=== PATIENT | female | born 1935 | race Caucasian/White ===

== ENCOUNTER 2017-07-10 12:59 | Emergency (ER) | payer OTHER ==
[~2017-07-10] VITALS: Ht 149.9 cm; Wt 113.0 kg
[~2017-07-10 12:59] MED LIST: NAPR1TAB9 PO; POLY335019 PO
[2017-07-10 13:07] VITALS: TEMP 36.7; Ht 149.9 cm; Wt 113.0 kg
[2017-07-10] MEDS ORDERED: LEVO50TA PO (13:20)
[2017-07-10] MEDS ORDERED: ACETAMINOPHEN 500 MG TAB PO STA (13:47)
[2017-07-10] MEDS ORDERED: TRAMADOL HCL 50 MG TAB PO STA (13:47)
[2017-07-10] MEDS ORDERED: IBUPROFEN 200 MG TAB PO STA (13:47)
--- NOTE | 2017-07-10 14:30 | EMERGENCY ROOM VISIT NOTE ---
History Report prepared by Nakita: Kalee Hartley Under the Supervision of: Dr. Miguel Guallpa M.D. First contact with patient: 13:26 Chief Complaint: HIP PAIN Stated Complaint: PAIN IN R LEG AND HIP History of Present Illness The patient is an 82 year old white female with a past medical history of HTN who presents to the ED with a cc of right leg pain worsening since last night. Positive dry cough. Negative fevers, chills, urinary symptoms, diarrhea, recent weight loss, IV drug use. The patient states that she has had pain in her right leg for some time, but last night it became much worse. She is now having pain in her right hip, which she states is new. Her pain is located in her right madrigal , right buttock, and right hip. She describes her pain as burning and sharp and rates it as a 4/10 in severity. She has not been taking anything for her pain. Lying still helps to alleviate her pain. The patient reports a bug bite to her right buttocks about two weeks ago and states that she still has a eileen where the bite occurred. She has been putting Neosporin on it and denies any pain around the area. The patient went to see her PCP this morning for her symptoms and was prescribed prednisone. She has not started taking this medication yet. She was sent to the ED for further evaluation of her symptoms. She states that she has been eating and drinking normally. Source of History: patient Onset: last night Position: leg (right) Symptom Intensity: 4/10 Quality: burning, sharp Timing: worsening Modifying Factors (Relieving): other (lying still) Associated Symptoms: + cough, No fevers, No chills, No diarrhea, No urinary symptoms Note: Pt has pain in right madrigal, right hip, and right buttock. Pt had recent bug bite to right buttock. Review of Systems See HPI for pertinent positives and negatives. A total of ten systems were reviewed and were otherwise negative. Past Medical & Surgical Medical Problems: (1) Bilateral tubal ligation (2) Hysterectomy Family History Non-pertinent due to advanced age. Social History Smoking Status: Never Smoker Smokeless Tobacco Use: No Alcohol Use: none Drug Use: none Marital Status: Housing Status: lives with family Occupation Status: retired Current/Historical Medications Scheduled Levothyroxine Sodium (Synthroid), 50 MCG PO DAILY Allergies Coded Allergies: Chlordiazepoxide (Verified Allergy, Intermediate, RASH, 07/28/16) Levofloxacin (Verified Adverse Reaction, Mild, GI UPSET, 07/28/16) Physical Exam Vital Signs Date Time Temp Pulse Resp B/P (MAP) Pulse Ox O2 Delivery O2 Flow Rate FiO2 07/10/17 16:49 84 20 141/84 97 07/10/17 13:07 36.7 98 20 160/93 95 Room Air Physical Exam GENERAL: Awake, alert, well-appearing, NAD HENT: Normocephalic, atraumatic. Edentulous. EYES: Normal conjunctiva. Sclera non-icteric. NECK: Supple. No nuchal rigidity. FROM. RESPIRATORY: CTAB, no rhonchi, wheezing, crackles CARDIAC: RRR, no MRG ABDOMEN: Soft, NTND, BS+ MSK: No chest wall TTP, no LE edema. Mild reproducible SI joint tenderness to palpation. good flexion/extension at hip, knee, ankle. DP/SP/tib nerves intact to sensory & motor NEURO: GCS 15, CN 2-12 intact, moves all 4s on command SKIN: No rash or jaundice noted. She has a small area of erythema on the posterior right buttock approximately 1 cm across, no fluctuance or tenderness, not consistent with a target. Medical Decision & Procedures ER Provider Diagnostic Interpretation: Radiology results as stated below per my review and radiologist interpretation: LUMBAR SPINE 2 OR 3 VIEWS HISTORY: 82 years-old Female acute right sided SI joint pain COMPARISON: Lumbar spine radiographs 07/28/2016 TECHNIQUE: 3 views of the lumbar spine. FINDINGS: There is mild convex right curvature of the lumbar spine. 5 nonrib-bearing lumbar type vertebral segments are present with hypoplastic ribs at T12. Vascular calcifications are noted. No acute compression deformity is identified. There is unchanged 6 mm anterolisthesis L4 on L5 with intervertebral disc space narrowing and facet arthropathy seen most prominently at the L3-L4 and L5-S1 levels. Hemangioma of L2 again noted. Degenerative changes involve the bilateral sacroiliac joints. No evidence of sacral insufficiency fracture, however radiographs can be insensitive especially in the setting of background osteopenia. IMPRESSION: 1. No acute bony abnormality. 2. Mild dextroscoliosis of the lumbar spine with unchanged grade 1 anterolisthesis L4 on L5, likely degenerative in nature. 3. Intervertebral disc space narrowing and facet arthropathy is most pronounced at the L3-L4 and L5-S1 levels. The above report was generated using voice recognition software. It may contain grammatical, syntax or spelling errors. Electronically signed by: Joaquin Tee M.D. 07/10/2017 2:36 PM Dictated Date/Time: 07/10/2017 2:33 PM RIGHT PELVIS/UNILATERAL HIP 2-3VIEWS CLINICAL HISTORY: FALL Right COMPARISON STUDY: None. FINDINGS: No fracture or dislocation within the pelvis or hips. Mild osteoarthritis within the bilateral hips and sacroiliac joints. The sacrum appears intact. Pelvic calcifications are nonspecific but favor phleboliths. There is evidence for moderate degenerative changes at the symphysis pubis.. IMPRESSION: No fracture or dislocation within the pelvis or hips. Electronically signed by: Oj Bang M.D. 07/10/2017 2:35 PM Dictated Date/Time: 07/10/2017 2:33 PM Laboratory Results 07/10/17 14:50 Red Blood Count 4.72, Mean Corpuscular Volume 87.7, Mean Corpuscular Hemoglobin 29.4, Mean Corpuscular Hemoglobin Concent 33.6, Mean Platelet Volume 10.4, Neutrophils (%) (Auto) 60.3, Lymphocytes (%) (Auto) 30.5, Monocytes (%) (Auto) 7.1, Eosinophils (%) (Auto) 1.6, Basophils (%) (Auto) 0.3, Neutrophils # (Auto) 3.89, Lymphocytes # (Auto) 1.97, Monocytes # (Auto) 0.46, Eosinophils # (Auto) 0.10, Basophils # (Auto) 0.02 07/10/17 14:50 Test 07/10/17 14:50 White Blood Count 6.45 K/uL (4.8-10.8) Red Blood Count 4.72 M/uL (4.2-5.4) Hemoglobin 13.9 g/dL (12.0-16.0) Hematocrit 41.4 % (37-47) Mean Corpuscular Volume 87.7 fL (80-100) Mean Corpuscular Hemoglobin 29.4 pg (25-34) Mean Corpuscular Hemoglobin Concent 33.6 g/dl (32-36) Platelet Count 295 K/uL (130-400) Mean Platelet Volume 10.4 fL (7.4-10.4) Neutrophils (%) (Auto) 60.3 % Lymphocytes (%) (Auto) 30.5 % Monocytes (%) (Auto) 7.1 % Eosinophils (%) (Auto) 1.6 % Basophils (%) (Auto) 0.3 % Neutrophils # (Auto) 3.89 K/uL (1.4-6.5) Lymphocytes # (Auto) 1.97 K/uL (1.2-3.4) Monocytes # (Auto) 0.46 K/uL (0.11-0.59) Eosinophils # (Auto) 0.10 K/uL (0-0.5) Basophils # (Auto) 0.02 K/uL (0-0.2) RDW Standard Deviation 45.6 fL (36.4-46.3) RDW Coefficient of Variation 14.1 % (11.5-14.5) Immature Granulocyte % (Auto) 0.2 % Immature Granulocyte # (Auto) 0.01 K/uL (0.00-0.02) Anion Gap 5.0 mmol/L (3-11) Est Creatinine Clear Calc Drug Dose 58.3 ml/min Estimated GFR () 74.5 Estimated GFR (Non- 64.3 BUN/Creatinine Ratio 13.3 (10-20) Calcium Level 9.3 mg/dl (8.5-10.1) Lyme Disease IgG Antibody NEG (NEG) Laboratory results reviewed by me. Medications Administered Medications (Trade) Dose Ordered Sig/Dayron Route Start Time Stop Time Status Last Admin Dose Admin Ibuprofen (Advil Tab) 400 mg NOW STAT PO 07/10/17 13:47 07/10/17 13:51 DC 07/10/17 14:12 400 MG Acetaminophen (Tylenol Tab) 1,000 mg NOW STAT PO 07/10/17 13:47 07/10/17 13:51 DC 07/10/17 14:11 1,000 MG Tramadol HCl (Ultram Tab) 25 mg NOW STAT PO 07/10/17 13:47 07/10/17 13:51 DC 07/10/17 14:11 25 MG ED Course 1326: The patient was evaluated in room B6. A complete history and physical exam was performed. 1347: Ultram 25 mg PO, Tylenol tab 1000 mg PO, Advil 400 mg PO 1451: I updated the patient on her results. 1629: I reassessed the patient at this time. She is feeling better and resting comfortably. I discussed the results and treatment plan with the patient. I answered all pertaining questions that she had. She expressed understanding and verbalized agreement. The patient will be discharged home. Medical Decision Differential diagnoses includes sacroiliitis, osteoarthritis, degenerative joint disease. The patient is an 82 year old white female with a past medical history of HTN who presents to the ED with a cc of right leg pain worsening since last night. Patient laboratory addition to x-rays. Patient did have degenerative and arthritic changes seen on her films without any dislocation or fracture. Patient was able to handle it without any difficulty. Patient's labs were fairly unremarkable. Patient was informed that she was discharged for Lyme's disease but that the results were not back. Patient was told that if confirmed we would have a confirmation test that would likely take 24-48 hours to complete at which point if confirm the patient would be called with resultant prescription to be ordered. Patient agree with the plan of care. Patient was given strict follow-up discharge, return precautions. Patient agreed with plan of care and was discharged home. Medication Reconcilliation Current Medication List: was personally reviewed by me Blood Pressure Screening Patient's blood pressure: Elevated blood pressure Blood pressure disposition: Referred to PCP Impression Primary Impression: Sacroiliitis Additional Impression: Osteoarthritis Scribe Attestation The scribe's documentation has been prepared under my direction and personally reviewed by me in its entirety. I confirm that the note above accurately reflects all work, treatment, procedures, and medical decision making performed by me. Departure Information Dispostion Home / Self-Care Referrals No Doctor, Assigned (PCP) Forms HOME CARE DOCUMENTATION FORM, IMPORTANT VISIT INFORMATION, WORK / SCHOOL INSTRUCTIONS Patient Instructions ED Sacroiliitis, My [facility] Additional Instructions Please return to the emergency department if you have worsening or recurrent symptoms not amenable to at-home treatment. Please call for a follow-up appointment with her primary care physician. Please take your medications as prescribed. If you have other concerns and/or complaints please feel free to also call your primary care physician's office or return the ED for further evaluation, management, and treatment. Problem Qualifiers Additional Impression: Osteoarthritis Osteoarthritis location: hip Osteoarthritis type: unspecified Laterality: right Qualified Codes: M16.11 - Unilateral primary osteoarthritis, right hip
--- NOTE | 2017-07-10 14:37 | DIAGNOSTIC IMAGING REPORT ---
RIGHT PELVIS/UNILATERAL HIP 2-3VIEWS CLINICAL HISTORY: FALL Right COMPARISON STUDY: None. FINDINGS: No fracture or dislocation within the pelvis or hips. Mild osteoarthritis within the bilateral hips and sacroiliac joints. The sacrum appears intact. Pelvic calcifications are nonspecific but favor phleboliths. There is evidence for moderate degenerative changes at the symphysis pubis.. IMPRESSION: No fracture or dislocation within the pelvis or hips. Electronically signed by: Oj Bang M.D. 07/10/2017 2:35 PM Dictated Date/Time: 07/10/2017 2:33 PM
--- NOTE | 2017-07-10 14:38 | DIAGNOSTIC IMAGING REPORT ---
LUMBAR SPINE 2 OR 3 VIEWS HISTORY: 82 years-old Female acute right sided SI joint pain COMPARISON: Lumbar spine radiographs 07/28/2016 TECHNIQUE: 3 views of the lumbar spine. FINDINGS: There is mild convex right curvature of the lumbar spine. 5 nonrib-bearing lumbar type vertebral segments are present with hypoplastic ribs at T12. Vascular calcifications are noted. No acute compression deformity is identified. There is unchanged 6 mm anterolisthesis L4 on L5 with intervertebral disc space narrowing and facet arthropathy seen most prominently at the L3-L4 and L5-S1 levels. Hemangioma of L2 again noted. Degenerative changes involve the bilateral sacroiliac joints. No evidence of sacral insufficiency fracture, however radiographs can be insensitive especially in the setting of background osteopenia. IMPRESSION: 1. No acute bony abnormality. 2. Mild dextroscoliosis of the lumbar spine with unchanged grade 1 anterolisthesis L4 on L5, likely degenerative in nature. 3. Intervertebral disc space narrowing and facet arthropathy is most pronounced at the L3-L4 and L5-S1 levels. The above report was generated using voice recognition software. It may contain grammatical, syntax or spelling errors. Electronically signed by: Joaquin Tee M.D. 07/10/2017 2:36 PM Dictated Date/Time: 07/10/2017 2:33 PM
[2017-07-10 15:08] LABS: BASO % 0.3 %; BASO ABS # 0.02 K/uL (0-0.2); COMPLETE YES; EOS % 1.6 %; HEMATOCRIT 41.4 % (37-47); IG% 0.2 %; LYMPH % 30.5 %; LYMPH ABS # 1.97 K/uL (1.2-3.4); MEAN CELL VOLUME 87.7 fL (80-100); MEAN CORPUSCULAR HEMOGLOBIN 29.4 pg (25-34); MEAN CORPUSCULAR HGB CONC 33.6 g/dl (32-36); MEAN PLATELET VOLUME 10.4 fL (7.4-10.4); MONO % 7.1 %; NEUT % 60.3 %; PLATELET COUNT 295 K/uL (130-400); RED BLOOD COUNT 4.72 M/uL (4.2-5.4); WHITE BLOOD COUNT 6.45 K/uL (4.8-10.8)
[2017-07-10 15:24] LABS: BUN/CREATININE RATIO 13.3 (10-20); CALCIUM 9.3 mg/dl (8.5-10.1); CREATININE 0.85 mg/dl (0.60-1.20)
[2017-07-10 16:49] VITALS: BP 141/84; PULSE 84; O2SAT 97
[2017-07-10 17:25] LABS: LYME DISEASE AB IGG NEG (NEG)
[2017-07-10 17:27] LABS: LYME DISEASE AB IGM EQUIVOCAL (NEG)
[2017-07-16 15:17] LABS: 18KDIGG BAND NONREACTIVE (NONREACTIVE); 23KDIGG BAND NONREACTIVE (NONREACTIVE); 23KDIGM BAND REACTIVE (NONREACTIVE); 28KDIGG BAND NONREACTIVE (NONREACTIVE); 30KDIGG BAND NONREACTIVE (NONREACTIVE); 39KDIGG BAND REACTIVE (NONREACTIVE); 39KDIGM BAND NONREACTIVE (NONREACTIVE); 41KDIGG BAND REACTIVE (NONREACTIVE); 41KDIGM BAND REACTIVE (NONREACTIVE); 45KDIGG BAND REACTIVE (NONREACTIVE); 58KDIGG BAND NONREACTIVE (NONREACTIVE); 66KDIGG BAND NONREACTIVE (NONREACTIVE); 93KDIGG BAND NONREACTIVE (NONREACTIVE)
== END 2017-07-10 16:50 | disposition home or self-care (01) ==
LOC: C.EDB 13:00
DX: M46.1 Sacroiliitis, not elsewhere classified (principal); M16.11 Unilateral primary osteoarthritis, right hip; I10 Essential (primary) hypertension; Z90.710 Acquired absence of both cervix and uterus; Z98.51 Tubal ligation status; Z79.899 Other long term (current) drug therapy

== ENCOUNTER 2021-03-31 14:01 | Observation (INO) ==
--- NOTE | 2021-03-31 14:40 | Emergency Department Note ---
Impression & Plan Left-sided chest pain ED Provider Note INFORMANT: Patient ED PROVIDER(S): Dontrell Sanchez MD CHIEF COMPLAINT: Chest pain PLAN: Disposition: Admitted Condition: Good Outpatient prescription management: none Referral: None MEDICAL DECISION MAKING: Patient presented complaining of chest pain. It was resolved with time I saw her. Her prehospital ECG did not show any ST elevation or depression. She was given aspirin. She had an unremarkable chest x-ray. Her ECG here did not show any ischemia. Her CBC and chemistry panel was unremarkable. The patient was moderately hypertensive. It did trend downward without direct intervention. Because of her age and hypertension along with the complaints she would require further management in the hospital. The patient was in agreement with this. [facility] The patient will be admitted for further management. Triage Nursing notes reviewed and agree them. Vital Signs: reviewed and remarkable for hypertension Differential diagnosis: Cardiac ischemia, aortic dissection, pulmonary embolism, pneumothorax, pneumonia, pericarditis, myocarditis, esophageal rupture, GERD, cholecystitis, pancreatitis, musculoskeletal, as well as other pathologies. Diagnostics interpreted by me: ECG: Rate: 69 Rhythm:Normal sinus [place]:Normal QRS:Normal ST segements:No elevation or depression Other:No PACs or PVCs Cardiac Monitoring: Cardiac monitoring ordered by me: The patient was placed on continuous cardiac monitoring and observed. It revealed a normal sinus rhythm at 77 beats per minute without ectopy or evidence of dysrhythmia. Imaging studies: Imaging studies: Chest x-ray. Findings: A chest x-ray was performed and revealed no pneumothorax, effusion, infiltrate, pulmonary edema, free air under the diaphragm, or wide mediastinum. Impression: No acute disease. HPI: The patient is a 86 year old female who presents to the Emergency Room with complaints of left-sided chest pain. This started this morning and is currently resolved. The patient also notes the following associated symptoms, none. The patient has taken no medication for relieving factors. Current pain is rated as 0/10. Patient states the pain was located left-sided chest. It did not radiate. She did feel short of breath. She was given 324 mg of aspirin by EMS. Prehospital ECG did not reveal any ST elevation or depression. Patient denies any medication history. She notes only problems with arthritis in her right elb ow and right knee pt denies LOC, headache, fevers, chills, diaphoresis, visual changes, neck pain, nausea, vomiting, abdominal pain, back pain, melena, hematochezia, urinary symptoms, numbness, weakness, lymphadenopathy, rash, or other complaints. ROS: See above HPI for pertinent positives & negatives. A total of 10 systems reviewed and were otherwise negative. PAST MEDICAL HISTORY:See Below , arthritis PAST SURGICAL HISTORY:See Below, FAMILY HISTORY:See Below SOCIAL HISTORY:See Below, retired HOME MEDICATIONS:See Below ALLERGIES:See Below VITALS:See Below PHYSICAL EXAMINATION: GENERAL: Awake, alert, mildly dyspneic-appearing, in no distress HENT: Normocephalic, atraumatic. Oropharynx unremarkable. EYES: Normal conjunctiva. Sclera non-icteric. NECK: Inspection normal. Non-tender. Supple. No nuchal rigidity. FROM. No masses. RESPIRATORY: Clear to auscultation. No wheezes. No rales. Normal respiratory effort. CARDIAC: Normal rate. Normal rhythm. No murmurs. No rubs. Extremities warm and well perfused. Pulses equal. No JVD. GI: Soft, non-distended. No tenderness to palpation. No rebound or guarding. No masses. RECTAL: Deferred. MUSCULOSKELETAL: Atraumatic. Chest examination reveals no tenderness. The back is symmetrical on inspection without obvious abnormality. There is no CVA tenderness to palpation. No joint edema. LOWER EXTREMITIES: Calves are equal size bilaterally and non-tender. No edema. No discoloration. NEURO: Normal sensorium. No sensory or motor deficits noted. SKIN: No rash or jaundice noted. Dontrell Sanchez MD Past Med/Surg History Medical History HTN (hypertension) Hypothyroidism Osteoarthritis Surgical History History of tubal ligation S/P NICOLE (total abdominal hysterectomy) S/P tonsillectomy and adenoidectomy Family History (Updated 03/31/21 @ 17:58 by LEIA Pinto) Sister Breast cancer Mother Stroke Social History (Updated 03/31/21 @ 18:02 by LEIA Pinto) Smoking Status: Never smoker Hx Alcohol Use: No Preferred Language: Ukrainian Feels Safe at Home: Yes Allergies Allergies Allergy/AdvReac Type Severity Reaction Status Date / Time chlordiazepoxide Allergy Intermediate RASH Verified 03/31/21 16:47 levofloxacin AdvReac Mild GI UPSET Verified 03/31/21 16:47 Home Meds Home Medications Medication Instructions Recorded Confirmed aspirin-caffeine [Back and Body 2 tab PO DIRECTED PRN 03/31/21 03/31/21 Pain Reliever] cholecalciferol (vitamin D3) 50,000 unit PO WK 03/31/21 03/31/21 levothyroxine 25 mcg PO QAM 03/31/21 03/31/21 Results & Data (ED) Vital Signs Vital Signs - 24 hr 03/31/21 14:10 03/31/21 14:15 03/31/21 14:17 Temperature 36.5 C Temperature Source Oral Pulse Rate 70 76 68 Pulse Rate [Apical] Pulse Rate from SpO2 Sensor 69 69 Pulse Rhythm Regular Pulse Strength Normal Respiratory Rate 18 14 15 Respiratory Effort / Characteristics Non-Labored Respiratory Depth Normal Respiratory Pattern Regular Blood Pressure 215/94 H 215/94 H Blood Pressure [Right Radial Artery] Blood Pressure Mean 134 134 Blood Pressure Mean [Right Radial Artery] Blood Pressure Position Lying Pulse Oximetry 99 93 99 Oxygen Delivery Method Room Air Sepsis Recent Fever Within 48 Hours No Sepsis New/Unexplained Change in Mental Status N/A Sepsis Action Taken by Nursing No Action Required 03/31/21 14:32 03/31/21 14:33 03/31/21 14:34 Temperature Temperature Source Pulse Rate 81 78 80 Pulse Rate [Apical] Pulse Rate from SpO2 Sensor 79 79 Pulse Rhythm Pulse Strength Respiratory Rate 24 20 26 H Respiratory Effort / Characteristics Respiratory Depth Respiratory Pattern Blood Pressure 196/98 H Blood Pressure [Right Radial Artery] Blood Pressure Mean 130 Blood Pressure Mean [Right Radial Artery] Blood Pressure Position Pulse Oximetry 98 98 Oxygen Delivery Method Sepsis Recent Fever Within 48 Hours Sepsis New/Unexplained Change in Mental Status Sepsis Action Taken by Nursing 03/31/21 14:35 03/31/21 15:00 03/31/21 15:01 Temperature Temperature Source Pulse Rate 77 74 78 Pulse Rate [Apical] 72 Pulse Rate from SpO2 Sensor 77 Pulse Rhythm Pulse Strength Respiratory Rate 24 21 12 Respiratory Effort / Characteristics Non-Labored Spontaneous Respiratory Depth Normal Respiratory Pattern Regular Blood Pressure 173/103 H Blood Pressure [Right Radial Artery] 196/98 H Blood Pressure Mean 126 Blood Pressure Mean [Right Radial Artery] 130 Blood Pressure Position Pulse Oximetry 93 99 Oxygen Delivery Method Room Air Sepsis Recent Fever Within 48 Hours Sepsis New/Unexplained Change in Mental Status Sepsis Action Taken by Nursing 03/31/21 15:30 03/31/21 15:31 03/31/21 16:00 Temperature Temperature Source Pulse Rate 78 78 77 Pulse Rate [Apical] Pulse Rate from SpO2 Sensor 78 78 Pulse Rhythm Pulse Strength Respiratory Rate 18 19 20 Respiratory Effort / Characteristics Respiratory Depth Respiratory Pattern Blood Pressure 182/84 H Blood Pressure [Right Radial Artery] Blood Pressure Mean 116 Blood Pressure Mean [Right Radial Artery] Blood Pressure Position Pulse Oximetry 98 98 Oxygen Delivery Method Sepsis Recent Fever Within 48 Hours Sepsis New/Unexplained Change in Mental Status Sepsis Action Taken by Nursing 03/31/21 16:30 03/31/21 17:00 03/31/21 17:01 Temperature Temperature Source Pulse Rate 77 72 72 Pulse Rate [Apical] Pulse Rate from SpO2 Sensor 78 72 72 Pulse Rhythm Pulse Strength Respiratory Rate 20 13 16 Respiratory Effort / Characteristics Respiratory Depth Respiratory Pattern Blood Pressure 174/100 H 178/135 H Blood Pressure [Right Radial Artery] Blood Pressure Mean 124 149 Blood Pressure Mean [Right Radial Artery] Blood Pressure Position Pulse Oximetry 98 97 97 Oxygen Delivery Method Sepsis Recent Fever Within 48 Hours Sepsis New/Unexplained Change in Mental Status Sepsis Action Taken by Nursing 03/31/21 17:30 Temperature Temperature Source Pulse Rate 68 Pulse Rate [Apical] Pulse Rate from SpO2 Sensor 76 Pulse Rhythm Pulse Strength Respiratory Rate 20 Respiratory Effort / Characteristics Respiratory Depth Respiratory Pattern Blood Pressure 187/95 H Blood Pressure [Right Radial Artery] Blood Pressure Mean 125 Blood Pressure Mean [Right Radial Artery] Blood Pressure Position Pulse Oximetry 95 Oxygen Delivery Method Sepsis Recent Fever Within 48 Hours Sepsis New/Unexplained Change in Mental Status Sepsis Action Taken by Nursing Laboratory Data Result diagrams: 03/31/21 16:02 03/31/21 16:02 Lab Results 03/31/21 03/31/21 03/31/21 Range/Units 15:18 15:18 16:02 WBC 7.91 (4.8-10.8) K/uL RBC 4.65 (4.2-5.4) M/uL Hgb 13.4 (12.0-16.0) g/dL Hct 41.1 (37-47) % MCV 88.4 (80-100) fL MCH 28.8 (25-34) pg MCHC 32.6 (32-36) g/dL RDW Std Deviation 46.0 (36.4-46.3) fL RDW Coeff of Kiley 14.2 (11.5-14.5) % Plt Count 305 (130-400) K/uL MPV 9.8 (7.4-10.4) fL Immature Gran % (Auto) 0.3 % Neut % (Auto) 65.6 % Lymph % (Auto) 24.3 % Luna % (Auto) 8.2 % Eos % (Auto) 1.5 % Baso % (Auto) 0.1 % Neut # (Auto) 5.19 (1.4-6.5) K/uL Lymph # (Auto) 1.92 (1.2-3.4) K/uL Luna # (Auto) 0.65 H (0.11-0.59) K/uL Eos # (Auto) 0.12 (0-0.5) K/uL Baso # (Auto) 0.01 (0-0.2) K/uL Immature Gran # (Auto) 0.02 (0.00-0.02) K/uL Sodium (136-145) mmol/L Potassium (3.5-5.1) mmol/L Chloride (98-107) mmol/L Carbon Dioxide (21-32) mmol/L Anion Gap (3-11) BUN (7-18) mg/dl Creatinine (0.6-1.2) mg/dl Est Cr Clr Drug Dosing ml/min Est GFR ( Amer) Est GFR (Non-Af Amer) BUN/Creatinine Ratio (10-20) Glucose (70-99) mg/dl Calcium (8.5-10.1) mg/dl Total Bilirubin (0.2-1) mg/dl AST (15-37) U/L ALT (12-78) U/L Alkaline Phosphatase (45-117) U/L Troponin I (0-0.045) ng/ml Total Protein (6.4-8.2) gm/dl Albumin (3.4-5.0) gm/dl Globulin (2.5-4.0) gm/dl Albumin/Globulin Ratio (0.9-2) Lipase (73-393) U/L COVID-19 Eval Order [facility] at [facility] SARS-CoV-2 (PCR) NEGATIVE (Negative) Influenza Type A (PCR) Negative (Neg) Influenza Type B (PCR) Negative (Neg) RSV (RT-PCR) Negative (Neg) 03/31/21 Range/Units 16:02 WBC (4.8-10.8) K/uL RBC (4.2-5.4) M/uL Hgb (12.0-16.0) g/dL Hct (37-47) % MCV (80-100) fL MCH (25-34) pg MCHC (32-36) g/dL RDW Std Deviation (36.4-46.3) fL RDW Coeff of Kiley (11.5-14.5) % Plt Count (130-400) K/uL MPV (7.4-10.4) fL Immature Gran % (Auto) % Neut % (Auto) % Lymph % (Auto) % Luna % (Auto) % Eos % (Auto) % Baso % (Auto) % Neut # (Auto) (1.4-6.5) K/uL Lymph # (Auto) (1.2-3.4) K/uL Luna # (Auto) (0.11-0.59) K/uL Eos # (Auto) (0-0.5) K/uL Baso # (Auto) (0-0.2) K/uL Immature Gran # (Auto) (0.00-0.02) K/uL Sodium 142 (136-145) mmol/L Potassium 4.1 (3.5-5.1) mmol/L Chloride 113 H (98-107) mmol/L Carbon Dioxide 27 (21-32) mmol/L Anion Gap 2.0 L (3-11) BUN 14 (7-18) mg/dl Creatinine 0.79 (0.6-1.2) mg/dl Est Cr Clr Drug Dosing 59.9 ml/min Est GFR ( Amer) 79.1 Est GFR (Non-Af Amer) 68.3 BUN/Creatinine Ratio 18.3 (10-20) Glucose 122 H (70-99) mg/dl Calcium 9.0 (8.5-10.1) mg/dl Total Bilirubin 0.4 (0.2-1) mg/dl AST 11 L (15-37) U/L ALT 19 (12-78) U/L Alkaline Phosphatase 111 (45-117) U/L Troponin I < 0.015 (0-0.045) ng/ml Total Protein 7.3 (6.4-8.2) gm/dl Albumin 3.3 L (3.4-5.0) gm/dl Globulin 4.0 (2.5-4.0) gm/dl Albumin/Globulin Ratio 0.8 L (0.9-2) Lipase 86 (73-393) U/L COVID-19 Eval Order SARS-CoV-2 (PCR) (Negative) Influenza Type A (PCR) (Neg) Influenza Type B (PCR) (Neg) RSV (RT-PCR) (Neg) Imaging Data Radiologist's Impression: Chest X-Ray 03/31/21 14:17 XR chest 1V portable CLINICAL HISTORY: Atypical chest pain COMPARISON STUDY: 08/19/2013 FINDINGS: The cardiac and mediastinal contours remain stable. There is no focal pulmonary consolidation. There is no failure. There are no pleural effusions.[ IMPRESSION: No active disease in the chest. ACT 112: Negative or not required by law. Electronically signed by: Valentino Rush M.D. 03/31/2021 3:15 PM Discharge Plan Visit Data Chief Complaint: Chest Pain ED Provider: Dontrell Sanchez Discharge Problem: Left-sided chest pain Patient Disposition: Admitted As Inpatient Forms Stand Alone [facility]: [facility] Prescriptions Prescriptions: No Action levothyroxine 25 mcg tablet 25 mcg PO QAM RF: 0 cholecalciferol (vitamin D3) 1,250 mcg (50,000 unit) capsule 50,000 unit PO WK RF: 0 Back and Body Pain Reliever 500-32.5 mg Tablet 2 tab PO DIRECTED PRN (Reason: Pain) RF: 0 Referrals Referrals: Leslie Cabezas DO [Primary Care Provider] -
--- NOTE | 2021-03-31 15:16 | XRay Report ---
XR chest 1V portable CLINICAL HISTORY: Atypical chest pain COMPARISON STUDY: 08/19/2013 FINDINGS: The cardiac and mediastinal contours remain stable. There is no focal pulmonary consolidati on. There is no failure. There are no pleural effusions.[ IMPRESSION: No active disease in the chest. ACT 112: Negative or not required by law. Electronically signed by: Valentino Rush M.D. 03/31/2021 3:15 PM
--- NOTE | 2021-03-31 16:08 | Electrocardiogram Report ---
Test Reason : Blood Pressure : / mmHG Vent. Rate : 069 BPM Atrial Rate : 069 BPM P-R Int : 168 ms QRS Dur : 082 ms QT Int : 404 ms P-R-T Axes : 061 -04 016 degrees QTc Int : 432 ms Normal sinus rhythm Low voltage QRS Borderline ECG When compared with ECG of 20-AUG-2013 07:39, No significant change was found Confirmed by Awais Lema ([id number]) on 03/31/2021 4:07:36 PM Referred By: REFERRED SELF Confirmed By:Awais Lema
[2021-03-31 16:09] LABS: Basophils # (auto) 0.01 K/uL (0-0.2); Basophils % (auto) 0.1 %; Eosinophils # (auto) 0.12 K/uL (0-0.5); Eosinophils % (auto) 1.5 %; Hematocrit (blood only) 41.1 % (37-47); Hemoglobin 13.4 g/dL (12.0-16.0); Immature Granulocytes # (auto) 0.02 K/uL (0.00-0.02); Immature Granulocytes % (auto) 0.3 %; Lymphocytes # (auto) 1.92 K/uL (1.2-3.4); Lymphocytes % (auto) 24.3 %; Mean Corpuscular Hemoglobin 28.8 pg (25-34); Mean Corpuscular Hgb Conc 32.6 g/dL (32-36); Mean Corpuscular Volume 88.4 fL (80-100); Mean Platelet Volume 9.8 fL (7.4-10.4); Monocytes # (auto) 0.65 K/uL (0.11-0.59); Monocytes % (auto) 8.2 %; Neutrophils # (auto) 5.19 K/uL (1.4-6.5); Neutrophils % (auto) 65.6 %; Platelet Count 305 K/uL (130-400); RDW Coefficient of Variation 14.2 % (11.5-14.5); Red Blood Count 4.65 M/uL (4.2-5.4); White Blood Count 7.91 K/uL (4.8-10.8)
[2021-03-31 16:27] LABS: Alanine Aminotransferase 19 U/L (12-78); Albumin Level 3.3 gm/dl (3.4-5.0); Aspartate Aminotransferase 11 U/L (15-37); BUN Creatinine Ratio 18.3 (10-20); Blood Urea Nitrogen 14 mg/dl (7-18); Carbon Dioxide 27 mmol/L (21-32); Chloride 113 mmol/L (98-107); Creatinine Clr Calc Pharmacy 59.9 ml/min; Est GFR (African American) 79.1; Est GFR (Non-African American) 68.3; Glucose 122 mg/dl (70-99); Lipase 86 U/L (73-393); Potassium 4.1 mmol/L (3.5-5.1); Sodium 142 mmol/L (136-145)
[2021-03-31 16:32] LABS: Albumin Globulin Ratio 0.8 (0.9-2); Alkaline Phosphatase 111 U/L (45-117); Bilirubin,Total 0.4 mg/dl (0.2-1); Total Protein 7.3 gm/dl (6.4-8.2); Troponin I < 0.015 ng/ml (0-0.045)
[2021-03-31 16:37] LABS: Influenza A virus by PCR Negative (Neg); Influenza B virus by PCR Negative (Neg); RSV by PCR Negative (Neg); SARS CoV2 RNA(COVID-19) InHosp NEGATIVE (Negative)
--- NOTE | 2021-03-31 17:27 | History & Physical Report ---
Date of Service March 31, 2021 Assessment & Plan (1) Left-sided chest pain: (2) Hypertensive urgency: -Admit to telemetry -Patient presenting from home with reports of left-sided chest pain -In the ED, found to be significantly hypertensive with BP 215/94 -Has been diagnosed with hypertension in the past however patient declined antihypertensive medication -Currently chest pain-free, initial troponin negative, EKG without acute ST changes -BP mildly improving without intervention -Chest pain likely secondary to hypertensive urgency however will rule out ACS with serial troponins and resting echo -Start amlodipine 5 mg daily, as needed hydralazine -Cardiology consult, input appreciated (3) Hypothyroidism: -Continue levothyroxine (4) DVT prophylaxis: -SQ Lovenox History of Present Illness Chief Complaint: Chest Pain Primary Care Provider: Leslie Cabezas DO 86 year old female with PMH HTN, hypothyroidism, osteoarthritis, and other problems listed below who presents to the ED with reports of chest pain. Patient reports that last evening she was at home and heard a loud bang near her TV. She found that a picture had fallen and unplugged the TV. Patient reports she had to move a heavy stand and stretch to plug the TV back in. Patient reports she has arthritis and had some of her usual aches and pains last evening and took a "Back and Body Pain Reliever" pill. Patient reports she was feeling in her usual state of health this morning when she developed a pain over left breast into the left axilla while walking to the bathroom. Pain was persistent, sharp, stabbing. Patient reports she pressed her medical alert button and EMS arrived and brought her to the ED for further evaluation. Patient reports that once EMS arrived, the pain subsided. She reports she has chronic exertional shortness of breath which is unchanged from baseline. Denies associated lightheadedness, dizziness, diaphoresis, syncopal events. No headache or blurred vision. No other recent illnesses, fevers, chills. Denies abdominal pain, nausea, vomitin g, diarrhea. No urinary symptoms. In the ED, patient was found to be significantly hypertensive BP 215/94. Initial troponin is negative and EKG does not show any acute ST changes. Labs are unremarkable. Patient received a full dose aspirin for EMS. Allergies Allergy/AdvReac Type Severity Reaction Status Date / Time chlordiazepoxide Allergy Intermediate RASH Verified 03/31/21 16:47 levofloxacin AdvReac Mild GI UPSET Verified 03/31/21 16:47 Home Medications Medication Instructions Recorded Confirmed Type aspirin-caffeine [Back and Body 2 tab PO DIRECTED PRN 03/31/21 03/31/21 History Pain Reliever] cholecalciferol (vitamin D3) 50,000 unit PO WK 03/31/21 03/31/21 History levothyroxine 25 mcg PO QAM 03/31/21 03/31/21 History Past Med/Surg History Medical History HTN (hypertension) Hypothyroidism Osteoarthritis Surgical History History of tubal ligation S/P NICOLE (total abdominal hysterectomy) S/P tonsillectomy and adenoidectomy Family History (Updated 03/31/21 @ 17:58 by LEIA Pinto) Sister Breast cancer Mother Stroke Social History (Updated 03/31/21 @ 18:02 by LEIA Pinot) Smoking Status: Former smoker Second Hand Exposure: No; Do You Dip or Chew Tobacco: No; Tobacco Cessation Education Requested by Patient: No Hx Alcohol Use: Yes Alcohol type: beer Hx Substance Use: No Preferred Language: Latvian Communication Ability: Effective 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 Beliefs That Will Affect Care: None Current Living Situation: Family Other Information That Helps Us Care for You: No Feels Safe at Home: Yes Safety Concerns: Feels Safe At This Time Assistive Devices: Walker Review of Systems Review of Systems: ROS per HPI, all other systems reviewed and negative Physical Exam Constitutional: WD/WN, vitals as above + obese Eyes: PERRL, conjunctivae normal, anicteric sclerae ENMT: external ear and nose normal, oropharynx normal Respiratory: normal respiratory effort, lungs clear to auscultation Cardiovascular: Rate/Rhythm: regular rate and regular rhythm Vessels: normal peripheral pulses Extremities: no edema Chest (Breasts): Additional Comments: Chest pain is not reproducible with palpation Gastrointestinal (Abdomen): normal bowel sounds, soft, nontender, no hepatosplenomegaly Musculoskeletal: no cyanosis or clubbing, extremities motor strength 5/5 Skin: no rashes, warm and dry Neurologic: PERRL, EOMI, accommodation nl, no face palsy, no dysarthria Psychiatric: A+Ox3, euthymic affect Results & Data Results & Data ([facility]) Vital Signs (Past 12 Hours) Vital Signs Temp Pulse Pulse Resp BP BP Pulse Ox 03/31/21 14:35 77 72 24 196/98 H 93 03/31/21 14:33 78 20 196/98 H 98 03/31/21 14:32 81 24 03/31/21 14:17 68 15 99 03/31/21 14:15 36.5 C 76 14 215/94 H 93 03/31/21 14:10 70 18 215/94 H 99 Laboratory Results Short CBC 03/31/21 Range/Units 16:02 WBC 7.91 (4.8-10.8) K/uL Hgb 13.4 (12.0-16.0) g/dL Hct 41.1 (37-47) % Plt Count 305 (130-400) K/uL BMP 03/31/21 16:02 Sodium 142 Potassium 4.1 Chloride 113 H Carbon Dioxide 27 BUN 14 Creatinine 0.79 Glucose 122 H Calcium 9.0 Cardiac Enzymes 03/31/21 Range/Units 16:02 Troponin I < 0.015 (0-0.045) ng/ml Liver Function 03/31/21 Range/Units 16:02 Total Bilirubin 0.4 (0.2-1) mg/dl AST 11 L (15-37) U/L ALT 19 (12-78) U/L Alkaline Phosphatase 111 (45-117) U/L Albumin 3.3 L (3.4-5.0) gm/dl Diagnostic Findings Chest X-Ray 03/31/21 14:17 XR chest 1V portable CLINICAL HISTORY: Atypical chest pain COMPARISON STUDY: 08/19/2013 FINDINGS: The cardiac and mediastinal contours remain stable. There is no focal pulmonary consolidation. There is no failure. There are no pleural effusions.[ IMPRESSION: No active disease in the chest. ACT 112: Negative or not required by law. Electronically signed by: Valentino Rush M.D. 03/31/2021 3:15 PM Code Status & VTE Plan Code Status Patient is a DNR as per my discussion with her. VTE Prophylaxis Plan VTE Prophylaxis will be ordered: Yes Supervising Physician Co-Signing Physician Notes Patient seen examined by me, care coordinated with LEIA Pinto, please refer to her note above for further detail. Patient is currently lying in bed, in the ED room, comfortable, denies any chest pain or shortness of breath. Denies having any diaphoresis, nausea during her chest pain episode. Previously diagnosed with hypertension, however patient was not taking her blood pressure medications. Patient reports pulling a heavy or TV stand, however pain is nonreproducible on palpation. Patient reported stabbing left-sided chest pain, which was not radiating to her back, left arm or neck, called EMS as it was not resolving. She is alert and oriented and answering questions appropriately, heart sounds are regular. Lung sounds clear to auscultation bilaterally, without any wheezing or crackles. Abdomen obese soft, nontender, positive bowel sounds. She is able to move all 4 extremities. No significant lower extremity edema noted. Troponin x1 is negative, no ischemic EKG changes noted, patient is in sinus rhythm. Discussed starting blood pressure treatment, patient is in agreement. Patient's daughter present at the bedside, updated. We will continue to trend troponin, monitor on telemetry, will obtain echo. Chest pain likely secondary to uncontrolled hypertension. Vinh Kauffman MD
[2021-03-31] MEDS ORDERED: amLODIPine BESYLATE 5 MG TAB PO ONE (17:50)
[2021-03-31] MEDS ORDERED: ACETAMINOPHEN 325 MG TAB PO PRN (19:01)
[2021-03-31] MEDS ORDERED: NITROGLYCERIN SL 0.4 MG/TAB TAB SL PRN (19:01)
[2021-03-31] MEDS ORDERED: hydrALAZINE HCL 20 MG/ML VIAL IV PRN (19:01)
[2021-03-31] MEDS ORDERED: ENOXAPARIN INJ 40 MG/0.4 ML SYR SQ SCH (21:00)
[2021-04-01 04:38] LABS: Hematocrit (blood only) 42.8 % (37-47); Hemoglobin 14.4 g/dL (12.0-16.0); Mean Corpuscular Hemoglobin 29.6 pg (25-34); Mean Corpuscular Hgb Conc 33.6 g/dL (32-36); Mean Corpuscular Volume 87.9 fL (80-100); Mean Platelet Volume 10.7 fL (7.4-10.4); Platelet Count 338 K/uL (130-400); RDW Coefficient of Variation 14.2 % (11.5-14.5); RDW Standard Deviation 45.7 fL (36.4-46.3); Red Blood Count 4.87 M/uL (4.2-5.4); White Blood Count 7.31 K/uL (4.8-10.8)
[2021-04-01 04:56] LABS: BUN Creatinine Ratio 13.8 (10-20); Creatinine Clr Calc Pharmacy 67.6 ml/min; Est GFR (African American) 91.6; Potassium 3.6 mmol/L (3.5-5.1)
[2021-04-01] MEDS ORDERED: LEVOTHYROXINE SODIUM 25 MCG TABLET PO SCH (06:30)
[2021-04-01] MEDS ORDERED: LOSARTAN POTASSIUM 25 MG TAB PO SCH (09:00)
[2021-04-01] MEDS ORDERED: amLODIPine BESYLATE 5 MG TAB PO SCH (09:00)
--- NOTE | 2021-04-01 09:11 | Hospitalist Progress Note ---
Date of Service April 01, 2021 Assessment & Plan (1) Left-sided chest pain: (2) Hypertensive urgency: -telemetry -Patient presenting from home with reports of left-sided chest pain -In the ED, found to be significantly hypertensive with BP 215/94 -Has been diagnosed with hypertension in the past however patient declined antihypertensive medication -Currently chest pain-free, initial troponin negative, EKG without acute ST changes -BP mildly improving without intervention -Chest pain likely secondary to hypertensive urgency however will rule out ACS with serial troponins and resting echo -Start amlodipine 5 mg daily, as needed hydralazine -Cardiology consult, input appreciated 04/01/21 -Troponin x3 negative, repeat ECG without ischemic changes Echo -mild concentric LVH. Left ventricular systolic function is normal. EF 65 to 70%. LV wall motion is normal. RV systolic function is normal. Left atrial size is normal. Right atrial size is normal. Diastolic dysfunction, grade 2. Aortic valve sclerosis mild, without significant aortic valvular stenosis. -Recommend to switch to losartan 25 daily instead of Norvasc -Discussed with the patient, who is willing to take the medication, and follow- up with PCP -Recommend blood pressure monitoring at home (3) Hypothyroidism: -Continue levothyroxine Morbid obesity BMI >50 -Counseling, life style modification recommended -Follow-up further with PCP (4) DVT prophylaxis: -SQ Lovenox Admission and Anticipated Discharge Date Admission Date: March 31, 2021 Subjective Patient seen in follow-up of chest pain, uncontrolled hypertension Currently resting in the chair, in no acute distress, eating lunch Reports she had a good night, no recurrence of chest pain She also denies any palpitations, shortness of breath, dizziness Seen by cardiology, patient was started on losartan, pt is in agreement to take the medication and follow-up with PCP Review of Systems Review of Systems: All systems reviewed & are unremarkable except as noted in HPI & below Constitutional: no fever and no chills Respiratory: no cough and no dyspnea Cardiovascular: no chest pain and no palpitations Gastrointestinal: no abdominal pain, no nausea and no vomiting Physical Exam Physical Exam: Constitutional: WD/WN, vitals as above + obese Eyes: PERRL, EOMI, conjunctivae normal, anicteric sclerae ENMT: external ear and nose normal, oropharynx normal Respiratory: normal respiratory effort, lungs clear to auscultation Cardiovascular: Rate/Rhythm: regular rate and regular rhythm Vessels: normal peripheral pulses Extremities: no edema Chest (Breasts): Additional Comments: Chest pain is not reproducible with palpation Gastrointestinal (Abdomen): normal bowel sounds, soft, obese, nontender Musculoskeletal: no cyanosis or clubbing, extremities motor strength 5/5, moves extremities Skin: no rashes, warm and dry Neurologic: PERRL, EOMI, no face palsy, no dysarthria, moves extremities Psychiatric: A+Ox3, euthymic affect Results & Data Results & Data ([facility]) Vital Signs (Past 12 Hours) Vital Signs Temp Pulse Pulse Resp BP Pulse Ox 04/01/21 07:44 36.7 C 84 18 150/68 H 96 04/01/21 07:39 64 04/01/21 04:00 36.4 C L 77 18 159/80 H 91 03/31/21 22:46 36.7 C 86 20 148/89 H 98 Laboratory Results 04/01/21 04/01/21 04/01/21 Range/Units 04:09 04:09 04:09 WBC 7.31 (4.8-10.8) K/uL RBC 4.87 (4.2-5.4) M/uL Hgb 14.4 (12.0-16.0) g/dL Hct 42.8 (37-47) % MCV 87.9 (80-100) fL MCH 29.6 (25-34) pg MCHC 33.6 (32-36) g/dL RDW Std Deviation 45.7 (36.4-46.3) fL RDW Coeff of Kiley 14.2 (11.5-14.5) % Plt Count 338 (130-400) K/uL MPV 10.7 H (7.4-10.4) fL Immature Gran % (Auto) % Neut % (Auto) % Lymph % (Auto) % [place] % (Auto) % Eos % (Auto) % Baso % (Auto) % Neut # (Auto) (1.4-6.5) K/uL Lymph # (Auto) (1.2-3.4) K/uL [place] # (Auto) (0.11-0.59) K/uL Eos # (Auto) (0-0.5) K/uL Baso # (Auto) (0-0.2) K/uL Immature Gran # (Auto) (0.00-0.02) K/uL Sodium 142 (136-145) mmol/L Potassium 3.6 (3.5-5.1) mmol/L Chloride 112 H (98-107) mmol/L Carbon Dioxide 26 (21-32) mmol/L Anion Gap 4.0 (3-11) BUN 10 (7-18) mg/dl Creatinine 0.70 (0.6-1.2) mg/dl Est Cr Clr Drug Dosing 67.6 ml/min Est GFR ( Amer) 91.6 Est GFR (Non-Af Amer) 79.0 BUN/Creatinine Ratio 13.8 (10-20) Glucose 104 H (70-99) mg/dl Calcium 9.0 (8.5-10.1) mg/dl Total Bilirubin (0.2-1) mg/dl AST (15-37) U/L ALT (12-78) U/L Alkaline Phosphatase (45-117) U/L Troponin I < 0.015 (0-0.045) ng/ml Total Protein (6.4-8.2) gm/dl Albumin (3.4-5.0) gm/dl Globulin (2.5-4.0) gm/dl Albumin/Globulin Ratio (0.9-2) Lipase (73-393) U/L COVID-19 Eval Order SARS-CoV-2 (PCR) (Negative) Influenza Type A (PCR) (Neg) Influenza Type B (PCR) (Neg) RSV (RT-PCR) (Neg) 03/31/21 03/31/21 03/31/21 Range/Units 22:06 16:02 16:02 WBC 7.91 (4.8-10.8) K/uL RBC 4.65 (4.2-5.4) M/uL Hgb 13.4 (12.0-16.0) g/dL Hct 41.1 (37-47) % MCV 88.4 (80-100) fL MCH 28.8 (25-34) pg MCHC 32.6 (32-36) g/dL RDW Std Deviation 46.0 (36.4-46.3) fL RDW Coeff of Kiley 14.2 (11.5-14.5) % Plt Count 305 (130-400) K/uL MPV 9.8 (7.4-10.4) fL Immature Gran % (Auto) 0.3 % Neut % (Auto) 65.6 % Lymph % (Auto) 24.3 % Davison % (Auto) 8.2 % Eos % (Auto) 1.5 % Baso % (Auto) 0.1 % Neut # (Auto) 5.19 (1.4-6.5) K/uL Lymph # (Auto) 1.92 (1.2-3.4) K/uL Davison # (Auto) 0.65 H (0.11-0.59) K/uL Eos # (Auto) 0.12 (0-0.5) K/uL Baso # (Auto) 0.01 (0-0.2) K/uL Immature Gran # (Auto) 0.02 (0.00-0.02) K/uL Sodium 142 (136-145) mmol/L Potassium 4.1 (3.5-5.1) mmol/L Chloride 113 H (98-107) mmol/L Carbon Dioxide 27 (21-32) mmol/L Anion Gap 2.0 L (3-11) BUN 14 (7-18) mg/dl Creatinine 0.79 (0.6-1.2) mg/dl Est Cr Clr Drug Dosing 59.9 ml/min Est GFR ( Amer) 79.1 Est GFR (Non-Af Amer) 68.3 BUN/Creatinine Ratio 18.3 (10-20) Glucose 122 H (70-99) mg/dl Calcium 9.0 (8.5-10.1) mg/dl Total Bilirubin 0.4 (0.2-1) mg/dl AST 11 L (15-37) U/L ALT 19 (12-78) U/L Alkaline Phosphatase 111 (45-117) U/L Troponin I < 0.015 < 0.015 (0-0.045) ng/ml Total Protein 7.3 (6.4-8.2) gm/dl Albumin 3.3 L (3.4-5.0) gm/dl Globulin 4.0 (2.5-4.0) gm/dl Albumin/Globulin Ratio 0.8 L (0.9-2) Lipase 86 (73-393) U/L COVID-19 Eval Order SARS-CoV-2 (PCR) (Negative) Influenza Type A (PCR) (Neg) Influenza Type B (PCR) (Neg) RSV (RT-PCR) (Neg) 03/31/21 03/31/21 Range/Units 15:18 15:18 WBC (4.8-10.8) K/uL RBC (4.2-5.4) M/uL Hgb (12.0-16.0) g/dL Hct (37-47) % MCV (80-100) fL MCH (25-34) pg MCHC (32-36) g/dL RDW Std Deviation (36.4-46.3) fL RDW Coeff of Kiley (11.5-14.5) % Plt Count (130-400) K/uL MPV (7.4-10.4) fL Immature Gran % (Auto) % Neut % (Auto) % Lymph % (Auto) % Davison % (Auto) % Eos % (Auto) % Baso % (Auto) % Neut # (Auto) (1.4-6.5) K/uL Lymph # (Auto) (1.2-3.4) K/uL Davison # (Auto) (0.11-0.59) K/uL Eos # (Auto) (0-0.5) K/uL Baso # (Auto) (0-0.2) K/uL Immature Gran # (Auto) (0.00-0.02) K/uL Sodium (136-145) mmol/L Potassium (3.5-5.1) mmol/L Chloride (98-107) mmol/L Carbon Dioxide (21-32) mmol/L Anion Gap (3-11) BUN (7-18) mg/dl Creatinine (0.6-1.2) mg/dl Est Cr Clr Drug Dosing ml/min Est GFR ( Amer) Est GFR (Non-Af Amer) BUN/Creatinine Ratio (10-20) Glucose (70-99) mg/dl Calcium (8.5-10.1) mg/dl Total Bilirubin (0.2-1) mg/dl AST (15-37) U/L ALT (12-78) U/L Alkaline Phosphatase (45-117) U/L Troponin I (0-0.045) ng/ml Total Protein (6.4-8.2) gm/dl Albumin (3.4-5.0) gm/dl Globulin (2.5-4.0) gm/dl Albumin/Globulin Ratio (0.9-2) Lipase (73-393) U/L COVID-19 Eval Order CovFluRsv at [facility] SARS-CoV-2 (PCR) NEGATIVE (Negative) Influenza Type A (PCR) Negative (Neg) Influenza Type B (PCR) Negative (Neg) RSV (RT-PCR) Negative (Neg) Medications Administered Current Inpatient Medications Acetaminophen (Acetaminophen 325 Mg Tab) 650 mg PO Q4H PRN PRN Reason: Pain or Fever Stop: 04/30/21 19:00 Enoxaparin Sodium (Enoxaparin Inj 40 Mg/0.4 Ml Syr) 40 mg SQ QPM [facility] Stop: 04/30/21 20:59 Last Admin: 03/31/21 21:06 Dose: 40 mg Documented by: Hydralazine HCl (Hydralazine Hcl 20 Mg/Ml Vial) 5 mg IV Q6H PRN PRN Reason: HTN Stop: 04/30/21 19:00 Levothyroxine Sodium (Levothyroxine Sodium 25 Mcg Tablet) 25 mcg PO DAILYBB [facility] Stop: 05/01/21 06:29 Last Admin: 04/01/21 05:48 Dose: 25 mcg Documented by: Losartan Potassium (Losartan Potassium 25 Mg Tab) 25 mg PO QAM [facility] Stop: 05/01/21 08:59 Last Admin: 04/01/21 09:02 Dose: 25 mg Documented by: Nitroglycerin (Nitroglycerin Sl 0.4 Mg/Tab Tab) 0.4 mg SL UD PRN PRN Reason: Chest Pain Stop: 04/30/21 19:00
--- NOTE | 2021-04-01 10:05 | Cardiology Consultation ---
Date of Consultation April 01, 2021 Assessment & Plan (1) Hypertensive urgency: The patient was started on amlodipine which improved her hypertension however, I think a better antihypertensive for her would be an MARY or ARB. I have discontinued the amlodipine and started her on losartan which can be titrated as an outpatient. (2) HTN (hypertension): She has a history of hypertension but was not any antihypertensive medications on admission. (3) Hypothyroidism: She has a history of hypothyroidism but states she does not take her hormone supplement. (4) Left-sided chest pain: Cardiac markers are negative. EKG is within normal limits. The echocardiogram showed no wall motion abnormalities or other significant findings. I do not believe any additional cardiac testing is indicated at this time. History of Present Illness Attending Physician: Collin Kauffman MD History of Present Illness This is an 86-year-old female with a history of hypertension and hypothyroidism. She may have not been compliant with her medications. She presented to the emergency department after she developed chest discomfort while trying to move a picture that had fallen and unplugged her TV. She was found to be markedly hypertensive when she presented. She was treated with Norvasc which improved her hypertension. Cardiac markers have been negative. EKG is within normal limits. The echocardiogram completed after admission shows normal LV function and no wall motion abnormalities. No significant valvular pathology. There is some mild left ventricular hypertrophy consistent with hypertension. Allergies Allergy/AdvReac Type Severity Reaction Status Date / Time chlordiazepoxide Allergy Intermediate RASH Verified 03/31/21 16:47 levofloxacin AdvReac Mild GI UPSET Verified 03/31/21 16:47 Home Medications Medication Instructions Recorded Confirmed Type aspirin-caffeine [Back and Body 2 tab PO DIRECTED PRN 03/31/21 03/31/21 History Pain Reliever] cholecalciferol (vitamin D3) 50,000 unit PO WK 03/31/21 03/31/21 History levothyroxine 25 mcg PO QAM 03/31/21 03/31/21 History Patient History Medical History HTN (hypertension) Hypothyroidism Osteoarthritis Surgical History History of tubal ligation S/P NICOLE (total abdominal hysterectomy) S/P tonsillectomy and adenoidectomy Family History Sister Breast cancer Mother Stroke Social History Smoking Status: Former smoker Second Hand Exposure: No; Do You Dip or Chew Tobacco: No; Tobacco Cessation Education Requested by Patient: No Hx Alcohol Use: Yes Alcohol type: beer Hx Substance Use: No Preferred Language: Kazakh Communication Ability: Effective Freezer Unloader Required: No Beliefs That Will Affect Care: None Current Living Situation: Family Other Information That Helps Us Care for You: No Feels Safe at Home: Yes Safety Concerns: Feels Safe At This Time Assistive Devices: Walker Review of Systems Review of Systems: All systems reviewed & are unremarkable except as noted in HPI & below Nothing additional to add. Physical Exam Physical Exam: General: no acute distress and stated age Head: normocephalic, no masses, lesions, tenderness or abnormalities Eyes: conjunctiva are pink and non-injected, sclera clear Neck: supple, no adenopathy, no bruits, normal jugular venous pulse, no hepatojugular reflux Chest: normal shape and normal respiratory effort Lungs: clear to auscultation and percussion Cardiac Exam: - regular rate & rhythm, no murmurs gallops or rubs - normal S1, normal S2 Pulses: 2(+) throughout Abdomen: abdomen soft, non-tender, no abnormal masses and no hepatosplenomegaly Musculoskeletal: no gait disturbance, no joint inflammation, no deforming arthritis Extremities: no edema and no cyanosis Neuro: grossly normal exam Results & Data ([facility]) Vital Signs (Past 12 Hours) Vital Signs Temp Pulse Pulse Resp BP Pulse Ox 04/01/21 07:44 36.7 C 84 18 150/68 H 96 04/01/21 07:39 64 04/01/21 04:00 36.4 C L 77 18 159/80 H 91 03/31/21 22:46 36.7 C 86 20 148/89 H 98 Laboratory Results Laboratory Results - last 24 hr 03/31/21 03/31/21 03/31/21 15:18 15:18 16:02 WBC 7.91 RBC 4.65 Hgb 13.4 Hct 41.1 MCV 88.4 MCH 28.8 MCHC 32.6 RDW Std Deviation 46.0 RDW Coeff of Kiley 14.2 Plt Count 305 MPV 9.8 Immature Gran % (Auto) 0.3 Neut % (Auto) 65.6 Lymph % (Auto) 24.3 [place] % (Auto) 8.2 Eos % (Auto) 1.5 Baso % (Auto) 0.1 Neut # (Auto) 5.19 Lymph # (Auto) 1.92 [place] # (Auto) 0.65 H Eos # (Auto) 0.12 Baso # (Auto) 0.01 Immature Gran # (Auto) 0.02 Sodium Potassium Chloride Carbon Dioxide Anion Gap BUN Creatinine Est Cr Clr Drug Dosing Est GFR ( Amer) Est GFR (Non-Af Amer) BUN/Creatinine Ratio Glucose Calcium Total Bilirubin AST ALT Alkaline Phosphatase Troponin I Total Protein Albumin Globulin Albumin/Globulin Ratio Lipase COVID-19 Eval Order CovFluRsv at [facility] SARS-CoV-2 (PCR) NEGATIVE Influenza Type A (PCR) Negative Influenza Type B (PCR) Negative RSV (RT-PCR) Negative 03/31/21 03/31/21 04/01/21 16:02 22:06 04:09 WBC RBC Hgb Hct MCV MCH MCHC RDW Std Deviation RDW Coeff of Kiley Plt Count MPV Immature Gran % (Auto) Neut % (Auto) Lymph % (Auto) [place] % (Auto) Eos % (Auto) Baso % (Auto) Neut # (Auto) Lymph # (Auto) [place] # (Auto) Eos # (Auto) Baso # (Auto) Immature Gran # (Auto) Sodium 142 Potassium 4.1 Chloride 113 H Carbon Dioxide 27 Anion Gap 2.0 L BUN 14 Creatinine 0.79 Est Cr Clr Drug Dosing 59.9 Est GFR ( Amer) 79.1 Est GFR (Non-Af Amer) 68.3 BUN/Creatinine Ratio 18.3 Glucose 122 H Calcium 9.0 Total Bilirubin 0.4 AST 11 L ALT 19 Alkaline Phosphatase 111 Troponin I < 0.015 < 0.015 < 0.015 Total Protein 7.3 Albumin 3.3 L Globulin 4.0 Albumin/Globulin Ratio 0.8 L Lipase 86 COVID-19 Eval Order SARS-CoV-2 (PCR) Influenza Type A (PCR) Influenza Type B (PCR) RSV (RT-PCR) 04/01/21 04/01/21 04:09 04:09 WBC 7.31 RBC 4.87 Hgb 14.4 Hct 42.8 MCV 87.9 MCH 29.6 MCHC 33.6 RDW Std Deviation 45.7 RDW Coeff of Kiley 14.2 Plt Count 338 MPV 10.7 H Immature Gran % (Auto) Neut % (Auto) Lymph % (Auto) [place] % (Auto) Eos % (Auto) Baso % (Auto) Neut # (Auto) Lymph # (Auto) [place] # (Auto) Eos # (Auto) Baso # (Auto) Immature Gran # (Auto) Sodium 142 Potassium 3.6 Chloride 112 H Carbon Dioxide 26 Anion Gap 4.0 BUN 10 Creatinine 0.70 Est Cr Clr Drug Dosing 67.6 Est GFR ( Amer) 91.6 Est GFR (Non-Af Amer) 79.0 BUN/Creatinine Ratio 13.8 Glucose 104 H Calcium 9.0 Total Bilirubin AST ALT Alkaline Phosphatase Troponin I Total Protein Albumin Globulin Albumin/Globulin Ratio Lipase COVID-19 Eval Order SARS-CoV-2 (PCR) Influenza Type A (PCR) Influenza Type B (PCR) RSV (RT-PCR) Diagnostic Findings Echocardiogram reveals normal left ventricular function no significant valvular pathology. Medications Administered Current Inpatient Medications Acetaminophen (Acetaminophen 325 Mg Tab) 650 mg PO Q4H PRN PRN Reason: Pain or Fever Stop: 04/30/21 19:00 Enoxaparin Sodium (Enoxaparin Inj 40 Mg/0.4 Ml Syr) 40 mg SQ QPM [facility] Stop: 04/30/21 20:59 Last Admin: 03/31/21 21:06 Dose: 40 mg Documented by: Hydralazine HCl (Hydralazine Hcl 20 Mg/Ml Vial) 5 mg IV Q6H PRN PRN Reason: HTN Stop: 04/30/21 19:00 Levothyroxine Sodium (Levothyroxine Sodium 25 Mcg Tablet) 25 mcg PO DAILYBB [facility] Stop: 05/01/21 06:29 Last Admin: 04/01/21 05:48 Dose: 25 mcg Documented by: Losartan Potassium (Losartan Potassium 25 Mg Tab) 25 mg PO QAM [facility] Stop: 05/01/21 08:59 Last Admin: 04/01/21 09:02 Dose: 25 mg Documented by: Nitroglycerin (Nitroglycerin Sl 0.4 Mg/Tab Tab) 0.4 mg SL UD PRN PRN Reason: Chest Pain Stop: 04/30/21 19:00
--- NOTE | 2021-04-01 12:11 | Discharge Summary ---
Date of Service April 01, 2021 Admission HPI Per Admitting Provider 86 year old female with PMH HTN, hypothyroidism, osteoarthritis, and other problems listed below who presents to the ED with reports of chest pain. Patient reports that last evening she was at home and heard a loud bang near her TV. She found that a picture had fallen and unplugged the TV. Patient reports she had to move a heavy stand and stretch to plug the TV back in. Patient reports she has arthritis and had some of her usual aches and pains last evening and took a "Back and Body Pain Reliever" pill. Patient reports she was feeling in her usual state of health this morning when she developed a pain over left breast into the left axilla while walking to the bathroom. Pain was persistent, sharp, stabbing. Patient reports she pressed her medical alert button and EMS arrived and brought her to the ED for further evaluation. Patient reports that once EMS arrived, the pain subsided. She reports she has chronic exertional shortness of breath which is unchanged from baseline. Denies associated lightheadedness, dizziness, diaphoresis, syncopal events. No headache or blurred vision. No other recent illnesses, fevers, chills. Denies abdominal pain, nausea, vomiting, diarrhea. No urinary symptoms. In the ED, patient was found to be significantly hypertensive BP 215/94. Initial troponin is negative and EKG does not show any acute ST changes. Labs are unremarkable. Patient received a full dose aspirin for EMS. Admission Exam Per Admitting Provider Constitutional: WD/WN, vitals as above + obese Eyes: PERRL, conjunctivae normal, anicteric sclerae ENMT: external ear and nose normal, oropharynx normal Respiratory: normal respiratory effort, lungs clear to auscultation Cardiovascular: Rate/Rhythm: regular rate and regular rhythm Vessels: normal peripheral pulses Extremities: no edema Chest (Breasts): Additional Comments: Chest pain is not reproducible with palpation Gastrointestinal (Abdomen): normal bowel sounds, soft, nontender, no hepatosplenomegaly Musculoskeletal: no cyanosis or clubbing, extremities motor strength 5/5 Skin: no rashes, warm and dry Neurologic: PERRL, EOMI, accommodation nl, no face palsy, no dysarthria Psychiatric: A+Ox3, euthymic affect Principal Diagnosis Chest pain, hypertensive urgency Discharge Exam Constitutional: WD/WN, vitals as above + obese Eyes: PERRL, EOMI, conjunctivae normal, anicteric sclerae ENMT: external ear and nose normal, oropharynx normal Respiratory: normal respiratory effort, lungs clear to auscultation Cardiovascular: Rate/Rhythm: regular rate and regular rhythm Vessels: normal peripheral pulses Extremities: no edema Chest (Breasts): Additional Comments: Chest pain is not reproducible with palpation Gastrointestinal (Abdomen): normal bowel sounds, soft, obese, nontender Musculoskeletal: no cyanosis or clubbing, extremities motor strength 5/5, moves extremities Skin: no rashes, warm and dry Neurologic: PERRL, EOMI, no face palsy, no dysarthria, moves extremities Psychiatric: A+Ox3, euthymic affect Discharge Data Allergies Allergy/AdvReac Type Severity Reaction Status Date / Time chlordiazepoxide Allergy Intermediate RASH Verified 03/31/21 16:47 levofloxacin AdvReac Mild GI UPSET Verified 03/31/21 16:47 Consultations 03/31/21 16:58 ED Decision to Admit Stat 03/31/21 19:01 Consult Cardiology Routine Hospital Course (1) Left-sided chest pain: (2) Hypertensive urgency: -telemetry -Patient presenting from home with reports of left-sided chest pain -In the ED, found to be significantly hypertensive with BP 215/94 -Has been diagnosed with hypertension in the past however patient declined antihypertensive medication -Currently chest pain-free, initial troponin negative, EKG without acute ST changes -BP mildly improving without intervention -Chest pain likely secondary to hypertensive urgency however will rule out ACS with serial troponins and resting echo -Start amlodipine 5 mg daily, as needed hydralazine -Cardiology consult, input appreciated 04/01/21 -Troponin x3 negative, repeat ECG without ischemic changes Echo -mild concentric LVH. Left ventricular systolic function is normal. EF 65 to 70%. LV wall motion is normal. RV systolic function is normal. Left atrial size is normal. Right atrial size is normal. Diastolic dysfunction, grade 2. Aortic valve sclerosis mild, without significant aortic valvular stenosis. -Recommend to switch to losartan 25 daily instead of Norvasc -Discussed with the patient, who is willing to take the medication, and follow- up with PCP -Recommend blood pressure monitoring at home (3) Hypothyroidism: -Continue levothyroxine Morbid obesity BMI >50 -Counseling, life style modification recommended -Follow-up further with PCP (4) DVT prophylaxis: -SQ Lovenox Total Time Total Time Spent Total Time Spent (In Minutes): 35 Total Time Includes: Examination of the Patient, Discharge Planning, Medication Reconciliation and Communication With Other Providers Discharge Plan Discharge Items Patient Disposition: Home - Self-Care Reason For Visit: CHEST PAIN, HTN URGENCY Discharge Diagnosis: Chest pain, hypertensive urgency Activity: Per Instructions section Non-emergency contact: Primary Care Provider Call non-emergency contact if: you have any medication questions and your symptoms worsen Follow-up/Referrals: Leslie Cabezas, [Primary Care Provider] - Diet: Heart Healthy Addtl Attending Provider Instructions: Follow-up with your primary care doctor, within 1 week. Take your new medication, losartan 25 mg daily. Recommend to monitor your blood pressure at home and record these numbers. Make sure to provide your health care provider with these numbers so your blood pressure medication can be further adjusted. Pending Studies at Discharge: No Stand-Alone Forms: [employer], Smoking Cessation Medications and DC Order Prescriptions: New losartan 25 mg Tablet 25 mg PO QAM Qty: 30 RF: 0 Continued levothyroxine 25 mcg tablet 25 mcg PO QAM RF: 0 cholecalciferol (vitamin D3) 1,250 mcg (50,000 unit) capsule 50,000 unit PO WK RF: 0 Back and Body Pain Reliever 500-32.5 mg Tablet 2 tab PO DIRECTED PRN (Reason: Pain) RF: 0 Discharge Orders: Discharge Order (Routine); Ordered 04/01/21 Ordered By: Collin Kauffman Admission Data Admit Date/Time: 03/31/21 17:15 Attending Provider: Collin Kauffman Admit Provider: Collin Kauffman Primary Care Provider: Leslie Cabezas Other Providers: Collin Kauffman ; Tavo Avila Other Interventions: Discharge Summary Assessment (RN) Last Done: 04/01/21 11:54
--- NOTE | 2021-04-02 21:15 | Electrocardiogram Report ---
Test Reason : Blood Pressure : / mmHG Vent. Rate : 067 BPM Atrial Rate : 067 BPM P-R Int : 170 ms QRS Dur : 078 ms QT Int : 418 ms P-R-T Axes : 051 005 001 degrees QTc Int : 441 ms Normal sinus rhythm with sinus arrhythmia Low voltage QRS Borderline ECG When compared with ECG of 31-MAR-2021 14:12, No significant change was found Confirmed by Brandon Booth ([id number]) on 04/02/2021 9:15:30 PM Referred By: REFERRED SELF Confirmed By:Brandon Booth
== END 2021-04-01 13:32 | disposition home or self-care (01) ==
LOC: 2S 14:01 → ED 14:01 → 2S 18:19

== ENCOUNTER 2022-03-14 21:03 | Inpatient (IN) ==
[2022-03-14 21:49] LABS: Basophils # (auto) 0.02 K/uL (0-0.2); Basophils % (auto) 0.2 %; Eosinophils # (auto) 0.26 K/uL (0-0.5); Eosinophils % (auto) 3.2 %; Hematocrit (blood only) 42.2 % (37-47); Hemoglobin 13.7 g/dL (12.0-16.0); Immature Granulocytes # (auto) 0.01 K/uL (0.00-0.02); Immature Granulocytes % (auto) 0.1 %; Lymphocytes # (auto) 1.81 K/uL (1.2-3.4); Lymphocytes % (auto) 22.5 %; Mean Corpuscular Hemoglobin 29.4 pg (25-34); Mean Corpuscular Hgb Conc 32.5 g/dL (32-36); Mean Corpuscular Volume 90.6 fL (80-100); Mean Platelet Volume 10.3 fL (7.4-10.4); Monocytes # (auto) 0.55 K/uL (0.11-0.59); Monocytes % (auto) 6.8 %; Neutrophils % (auto) 67.2 %; Platelet Count 289 K/uL (130-400); RDW Coefficient of Variation 14.4 % (11.5-14.5); RDW Standard Deviation 47.4 fL (36.4-46.3); Red Blood Count 4.66 M/uL (4.2-5.4); White Blood Count 8.05 K/uL (4.8-10.8)
[2022-03-14 22:00] LABS: Appearance Urine Clear (Clear); Bacteria Urine Automated 1+ (Negative); Bilirubin Urine Negative (Negative); Blood Urine Negative (Negative); Cast Urine Automated 0 /lpf (0-5); Color Urine Yellow; Glucose Urine UA Negative (Negative); Ketones Urine Negative (Negative); Leukocyte Esterase Urine Trace (Negative); Nitrite Urine Negative (Negative); Protein Urine Negative (Negative); RBC Urine Automated 0-4 /hpf (0-4); Specific Gravity Urine 1.007 (1.000-1.030); Urobilinogen Urine Negative (Negative)
--- NOTE | 2022-03-14 22:11 | Emergency Department Note ---
History of Present Illness General Chief Complaint: Anxiety Stated Complaint: ANXIETY ATTACK, CHEST TIGHTNESS Time Seen by Provider: 03/14/22 21:20 History of Present Illness Provider Complaint: chest pain Onset (ago): hour(s) less than 1 Duration: now resolved Onset: during rest Pain Location: substernal Pain Radiation: none Severity: moderate Current Pain Intensity: 0 Quality: + tightness Relieved By: + nothing Exacerbated By: + other (Stress. Patient states she started stressing and panicking about her caregivers going on vacation and not being able to help take care of her) Context: no recent illness, no recent surgery, no recent immobilization, no recent travel, no trauma/injury or no new medications Associated symptoms: no nausea, no vomiting, no diaphoresis, no dyspnea, no syncope, no palpitations, no fever, no cough or no leg swelling Home Medications Medication Instructions Recorded Confirmed Type aspirin-caffeine 500 mg-32.5 mg 2 tab PO DIRECTED PRN 03/31/21 03/31/21 History tablet (Back and Body Pain Reliever) cholecalciferol (vitamin D3) 1,250 50,000 unit PO WK 03/31/21 03/31/21 History mcg (50,000 unit) capsule levothyroxine 25 mcg tablet 25 mcg PO QAM 03/31/21 03/31/21 History losartan 25 mg tablet 25 mg PO QAM #30 tab 04/01/21 Rx lidocaine 5 % topical patch 1 patch TOPICAL DAILY #15 ea 03/05/22 Rx (Lidoderm) Allergies Allergy/AdvReac Type Severity Reaction Status Date / Time chlordiazepoxide Allergy Intermediate RASH Verified 03/31/21 16:47 levofloxacin AdvReac Mild GI UPSET Verified 03/31/21 16:47 Past Med/Surg History Medical History HTN (hypertension) Hypothyroidism Osteoarthritis Surgical History History of tubal ligation S/P NICOLE (total abdominal hysterectomy) S/P tonsillectomy and adenoidectomy Family History Sister Breast cancer Mother Stroke Social History Smoking Status: Never smoker Second Hand Exposure: No; Hx Alcohol Use: Yes Alcohol type: beer Hx Substance Use: No Preferred Language: Sami Communication Ability: Effective Learning Disabilities Resource Teacher Required: No Beliefs That Will Affect Care: None Current Living Situation: Family Feels Safe at Home: Yes Assistive Devices: Walker Review of Systems A total of 10 systems reviewed and were otherwise negative Physical Exam Vital Signs Vital Signs - 24 hr 03/14/22 21:07 03/14/22 21:25 03/14/22 22:30 Temperature 36.6 C Temperature Source Temporal Artery Scan Pulse Rate 93 H 96 H 90 Pulse Rate from SpO2 Sensor 87 Respiratory Rate 18 24 13 Respiratory Effort / Characteristics Non-Labored Spontaneous Respiratory Depth Normal Respiratory Pattern Regular Blood Pressure 182/74 H Blood Pressure Mean 110 Pulse Oximetry 95 98 Oxygen Delivery Method Room Air Sepsis Recent Fever Within 48 Hours No Sepsis New/Unexplained Change in Mental Status No Sepsis Action Taken by Nursing No Action Required 03/14/22 23:44 03/15/22 00:00 Temperature Temperature Source Pulse Rate 85 85 Pulse Rate from SpO2 Sensor 84 85 Respiratory Rate 18 29 H Respiratory Effort / Characteristics Respiratory Depth Respiratory Pattern Blood Pressure 148/86 H Blood Pressure Mean 106 Pulse Oximetry 97 98 Oxygen Delivery Method Room Air Sepsis Recent Fever Within 48 Hours Sepsis New/Unexplained Change in Mental Status Sepsis Action Taken by Nursing Physical Exam GENERAL: She is oriented to person, place, and time. She appears well-developed and well-nourished. She does not appear distressed. HENT: Exam performed. -Head: Normocephalic and atraumatic. -Right Ear: External ear normal. No mastoid tenderness. -Left Ear: External ear normal. No mastoid tenderness. -Mouth/Throat: The oropharynx is clear and moist. No trismus in the jaw. No dental abscesses or uvula swelling. No oropharyngeal exudate or tonsillar abscesses. EYES: Conjunctivae and EOM are normal. Pupils are equal, round, and reactive to light. Right eye exhibits no discharge. Left eye exhibits no discharge. No scleral icterus. NECK: Normal range of motion. Neck supple. No JVD present. No spinous process tenderness present. No carotid bruit present. No rigidity. No tracheal deviation and normal range of motion present. No Brudzinski's sign and no Kernig's sign noted. CV: Normal rate, regular rhythm, normal heart sounds and intact distal pulses. There is no peripheral edema. Palpable radial pulses bue. PULM/CHEST: Effort normal and breath sounds normal. No respiratory distress. No stridor. She has no wheezes. She has no rales. -Chest Wall: She exhibits no tenderness. ABD: The abdomen is soft and obese Bowel sounds are normal. She has no distension. No mass is present. There is no tenderness. There is no rebound, no guarding, no Casillas's sign and no tenderness at McBurney's point. Rovsig negative MUSC/SKEL: Normal range of motion. There is no peripheral edema, tenderness or deformity. LYMPH: No cervical adenopathy. NEURO: She is alert and oriented to person, place, and time. She has normal strength. No cranial nerve deficit or sensory deficit. Coordination and gait normal. GCS eye subscore is 4. GCS verbal subscore is 5. GCS motor subscore is 6. Cerebellar tests wnl. SKIN: Skin is warm and dry. She is not diaphoretic. PSYCH: She has a normal mood and affect. Behavior is normal. Judgment and thought content normal. Course Course 2119: The patient was evaluated in room C8. A complete history and physical exam was performed Cardiac monitoring: An order was placed for continuous cardiac monitoring. The monitor shows a rate of 90 with sinus rhythm 0005: Vital signs stable. Labs and imaging within normal limits. Patient will be observed overnight for chest pain rule out ACS. Discussed case with Dr. Garrison who agreed to evaluate the patient for admission. Medical Decision Making Laboratory Data Result diagrams: 03/14/22 21:30 03/14/22 22:48 Labs: Lab Results 03/14/22 03/14/22 03/14/22 Range/Units 21:30 21:30 21:40 WBC 8.05 (4.8-10.8) K/uL RBC 4.66 (4.2-5.4) M/uL Hgb 13.7 (12.0-16.0) g/dL Hct 42.2 (37-47) % MCV 90.6 (80-100) fL MCH 29.4 (25-34) pg MCHC 32.5 (32-36) g/dL RDW Std Deviation 47.4 H (36.4-46.3) fL RDW Coeff of Kiley 14.4 (11.5-14.5) % Plt Count 289 (130-400) K/uL MPV 10.3 (7.4-10.4) fL Immature Gran % (Auto) 0.1 % Neut % (Auto) 67.2 % Lymph % (Auto) 22.5 % Mohave % (Auto) 6.8 % Eos % (Auto) 3.2 % Baso % (Auto) 0.2 % Neut # (Auto) 5.40 (1.4-6.5) K/uL Lymph # (Auto) 1.81 (1.2-3.4) K/uL Mohave # (Auto) 0.55 (0.11-0.59) K/uL Eos # (Auto) 0.26 (0-0.5) K/uL Baso # (Auto) 0.02 (0-0.2) K/uL Immature Gran # (Auto) 0.01 (0.00-0.02) K/uL Sodium 138 (136-145) mmol/L Potassium TNP Chloride 106 (98-107) mmol/L Carbon Dioxide 26 (21-32) mmol/L Anion Gap 6 (3-11) BUN 12 (6-23) mg/dl Creatinine 0.99 (0.6-1.2) mg/dl Est Cr Clr Drug Dosing 46.9 ml/min Est GFR ( Amer) 60.2 ml/min Est GFR (Non-Af Amer) 52.0 ml/min BUN/Creatinine Ratio 12.1 (10-20) Glucose 116 H (70-99(Fasting)) mg/dl Calcium 9.2 (8.5-10.1) mg/dl Total Bilirubin 0.3 (0.2-1.0) mg/dl AST TNP ALT 26 (7-52) U/L Alkaline Phosphatase 87 (34-104) U/L Troponin I High Sens (0-14) pg/ml Total Protein 7.0 (6.0-8.3) gm/dl Albumin 3.9 (3.4-5.0) gm/dl Globulin 3.1 (2.5-4.0) gm/dl Albumin/Globulin Ratio 1.3 (0.9-2) Urine Color Yellow Urine Appearance Clear (Clear) Urine pH 6.0 (4.5-7.5) Ur Specific Melvin 1.007 (1.000-1.030) Urine Protein Negative (Negative) Urine Glucose (UA) Negative (Negative) Urine Ketones Negative (Negative) Urine Blood Negative (Negative) Urine Nitrite Negative (Negative) Urine Bilirubin Negative (Negative) Urine Urobilinogen Negative (Negative) Ur Leukocyte Esterase Trace H (Negative) Urine WBC (Auto) 5-10 H (0-5) /hpf Urine RBC (Auto) 0-4 (0-4) /hpf U Hyaline Cast (Auto) 0 (0-5) /lpf U Epithel Cells (Auto) 10-20 H (0-5) /lpf Urine Bacteria (Auto) 1+ H (Negative) 03/14/22 Range/Units 22:48 WBC (4.8-10.8) K/uL RBC (4.2-5.4) M/uL Hgb (12.0-16.0) g/dL Hct (37-47) % MCV (80-100) fL MCH (25-34) pg MCHC (32-36) g/dL RDW Std Deviation (36.4-46.3) fL RDW Coeff of Kiley (11.5-14.5) % Plt Count (130-400) K/uL MPV (7.4-10.4) fL Immature Gran % (Auto) % Neut % (Auto) % Lymph % (Auto) % Mohave % (Auto) % Eos % (Auto) % Baso % (Auto) % Neut # (Auto) (1.4-6.5) K/uL Lymph # (Auto) (1.2-3.4) K/uL Mohave # (Auto) (0.11-0.59) K/uL Eos # (Auto) (0-0.5) K/uL Baso # (Auto) (0-0.2) K/uL Immature Gran # (Auto) (0.00-0.02) K/uL Sodium (136-145) mmol/L Potassium 3.8 Chloride (98-107) mmol/L Carbon Dioxide (21-32) mmol/L Anion Gap (3-11) BUN (6-23) mg/dl Creatinine (0.6-1.2) mg/dl Est Cr Clr Drug Dosing ml/min Est GFR ( Amer) ml/min Est GFR (Non-Af Amer) ml/min BUN/Creatinine Ratio (10-20) Glucose (70-99(Fasting)) mg/dl Calcium (8.5-10.1) mg/dl Total Bilirubin (0.2-1.0) mg/dl AST 19 ALT (7-52) U/L Alkaline Phosphatase (34-104) U/L Troponin I High Sens 4.2 (0-14) pg/ml Total Protein (6.0-8.3) gm/dl Albumin (3.4-5.0) gm/dl Globulin (2.5-4.0) gm/dl Albumin/Globulin Ratio (0.9-2) Urine Color Urine Appearance (Clear) Urine pH (4.5-7.5) Ur Specific Melvin (1.000-1.030) Urine Protein (Negative) Urine Glucose (UA) (Negative) Urine Ketones (Negative) Urine Blood (Negative) Urine Nitrite (Negative) Urine Bilirubin (Negative) Urine Urobilinogen (Negative) Ur Leukocyte Esterase (Negative) Urine WBC (Auto) (0-5) /hpf Urine RBC (Auto) (0-4) /hpf U Hyaline Cast (Auto) (0-5) /lpf U Epithel Cells (Auto) (0-5) /lpf Urine Bacteria (Auto) (Negative) Imaging Data Chest x-ray: My impression: Chest x-ray negative. Airway clear. No pneumothorax. No consolidation. No cardiomegaly or cephalization.. No free air under the diaphragm. No fractures of the skeletal structures. ECG Data Indication: chest pain Rate (beats per minute): 82 Rhythm: normal sinus Findings: no ST depression, no ST elevation or no prolonged QT Additional Comments: QRS 72 MDM Narrative Vital signs stable. Labs and imaging within normal limits. Patient will be obs erved overnight for chest pain rule out ACS. Discussed case with Dr. Garrison who agreed to evaluate the patient for admission. Impression & Plan Chest pain Discharge Plan Visit Data Chief Complaint: Anxiety Stated Complaint: ANXIETY ATTACK, CHEST TIGHTNESS ED Provider: Jayme Kim Discharge Problem: Chest pain Patient Disposition: Admitted As Inpatient Forms Stand Alone Forms: My [facility], Suicide Prevention Resources Prescriptions Prescriptions: No Action lidocaine [Lidoderm] 5 % adhesive patch,medicated 1 patch topical DAILY Qty: 15 RF: 0 levothyroxine 25 mcg tablet 25 mcg PO QAM RF: 0 cholecalciferol (vitamin D3) 1,250 mcg (50,000 unit) capsule 50,000 unit PO WK RF: 0 Back and Body Pain Reliever 500-32.5 mg Tablet 2 tab PO DIRECTED PRN (Reason: Pain) RF: 0 losartan 25 mg Tablet 25 mg PO QAM Qty: 30 RF: 0 Referrals Referrals: Leslie Cabezas DO [Outside Practitioners] -
[2022-03-14 22:12] LABS: Alanine Aminotransferase 26 U/L (7-52); Albumin Globulin Ratio 1.3 (0.9-2); Albumin Level 3.9 gm/dl (3.4-5.0); Alkaline Phosphatase 87 U/L (34-104); Anion Gap 6 (3-11); BUN Creatinine Ratio 12.1 (10-20); Bilirubin,Total 0.3 mg/dl (0.2-1.0); Blood Urea Nitrogen 12 mg/dl (6-23); Calcium 9.2 mg/dl (8.5-10.1); Carbon Dioxide 26 mmol/L (21-32); Chloride 106 mmol/L (98-107); Creatinine Clr Calc Pharmacy 46.9 ml/min; Est GFR (African American) 60.2 ml/min; Globulin 3.1 gm/dl (2.5-4.0); Glucose 116 mg/dl (70-99(Fasting)); Sodium 138 mmol/L (136-145)
[2022-03-14 23:40] LABS: Troponin I High Sensitivity 4.2 pg/ml (0-14)
[2022-03-14 23:44] LABS: Potassium 3.8 mmol/L (3.5-5.1)
[2022-03-15] MEDS ORDERED: POLYETHYLENE (MIRALAX) 17 GM PACK PO PRN (02:33)
[2022-03-15] MEDS ORDERED: DIPHENHYDRAMINE ACETAMINOPHEN PO PRN (02:33)
[2022-03-15] MEDS ORDERED: ACETAMINOPHEN 325 MG TAB PO PRN (02:33)
[2022-03-15] MEDS ORDERED: NITROGLYCERIN SL 0.4 MG/TAB TAB SL PRN (02:33)
[2022-03-15] MEDS ORDERED: ONDANSETRON INJ 2 MG/ML 2 ML VIAL IV PRN (02:33)
--- NOTE | 2022-03-15 04:11 | History and Physical Report ---
DATE OF ADMISSION: 03/15/2022. CHIEF COMPLAINT: Chest pain. HISTORY OF PRESENT ILLNESS: This 86-year-old female with past medical history significant for hypothyroidism, chronic kidney disease stage III, obesity, senile osteoporosis, spinal stenosis of lumbar region, who lives alone, was presented with chest pain. The patient says she lives downstairs and her son and family live upstairs. Her brother and his are caregiver. They come 3 times a week and help her and her caregivers are going for vacation, which caused some stress and some panic to her though her family is good to her. Her son and also her sister who lives in [place] help her, but for some reason she felt stressed and panicked and that brought her chest pain in the lower chest region, which prompted her to come to the ER. Currently, she does not have any pain, but whenever she feels anxious or stressed, the pain comes back. Denies any shortness of breath, no cough, no fever, no chills, no headache, no blurred vision, no earache, no runny nose, no sore throat. Appetite is good. No difficulty swallowing. No nausea, no abdominal pain. Normal bowel and bladder movements. Ambulates with a walker. Currently, resting comfortably and hemodynamically stable. ALLERGIES: CHLORDIAZEPOXIDE AND LEVOFLOXACIN. PAST MEDICAL HISTORY: As mentioned above. PAST SURGICAL HISTORY: Ligation of oviducts, removal of tonsillectomy, adenoidectomy, total abdominal hysterectomy with removal of the tubes. MEDICATIONS: The patient is on vitamin D, levothyroxine 50 mcg p.o. daily, Lidoderm patch topically daily, loratadine 10 mg p.o. daily, losartan 50 mg p.o. daily. FAMILY HISTORY: Significant for brother had cancer. Sister had breast cancer. SOCIAL HISTORY: , currently lives alone. Smokes half pack a day for 2 years. Rarely drinks. No drug use. REVIEW OF SYSTEMS: As per HPI. Rest of review of systems is negative. PHYSICAL EXAMINATION: GENERAL: The patient is alert and awake, not in acute distress. The patient is morbidly obese. VITAL SIGNS: Temperature 36.6, pulse 85, respiratory rate 29, blood pressure 148/86, oxygen 98% on room air. HEENT: Pupils equal, round and reactive to light. Oral mucosa moist. NECK: No JVD, no neck masses. CARDIOVASCULAR: S1 and S2 heard. Regular rate and rhythm. No murmur, no gallop. RESPIRATORY SYSTEM: Normal AP diameter. No accessory muscle use. No wheezing, no crackles. ABDOMEN: Soft, bowel sounds present, nontender, no distention. CENTRAL NERVOUS SYSTEM: Cranial nerves II-XII grossly intact, nonfocal. EXTREMITIES: No edema, no erythema. LABORATORY DATA: WBC 8, hemoglobin 13.7, hematocrit 42.2, platelets 289. Sodium 138, potassium 3.8, chloride 106, bicarb 26, BUN 12, creatinine 0.9, serum glucose 116, calcium 9.2, total bilirubin 0.3, AST 19, ALT 26, alkaline phosphatase 87. Troponin I high sensitivity 4.2. Urinalysis: Trace leukocyte esterase, +1 bacteria. SARS-CoV-2 negative. IMAGING DATA: Chest x-ray, no acute findings. EKG: Normal sinus rhythm at a rate of 82, no significant change was found. ASSESSMENT AND PLAN: This is an 86-year-old female who presented with chest pain. 1. Chest pain. Rule out acute coronary syndrome. She is getting chest pain with stress or anxiety. Initial workup is negative. We will follow serial enzymes, echocardiogram. Keep her n.p.o. Consult Cardiology in the a.m. for further recommendations. Monitor in [facility]. 2. History of hypothyroidism. Continue Synthroid. 3. History of hypertension. Continue losartan. 4. Chronic kidney disease, stage III. Presently, creatinine was 0.9. We will follow the labs. 5. Deep venous thrombosis prophylaxis. Sequential compression devices for now. DISPOSITION: Observation in [facility]. PT/OT prior to discharge. Social service to help with discharge planning. Job ID: [id number] [facility]
[2022-03-15] MEDS: cefTRIAXone SODIUM 2,000 MG in DEXTROSE 5% 50 ML IV SCH (05:18)
[2022-03-15] MEDS: LEVOTHYROXINE SODIUM 50 MCG TABLET PO SCH (05:19)
[2022-03-15 06:02] LABS: Basophils # (auto) 0.01 K/uL (0-0.2); Basophils % (auto) 0.1 %; Eosinophils # (auto) 0.19 K/uL (0-0.5); Eosinophils % (auto) 2.6 %; Hematocrit (blood only) 40.6 % (37-47); Hemoglobin 13.2 g/dL (12.0-16.0); Immature Granulocytes # (auto) 0.01 K/uL (0.00-0.02); Immature Granulocytes % (auto) 0.1 %; Lymphocytes # (auto) 1.76 K/uL (1.2-3.4); Lymphocytes % (auto) 24.3 %; Mean Corpuscular Hemoglobin 29.4 pg (25-34); Mean Corpuscular Hgb Conc 32.5 g/dL (32-36); Mean Corpuscular Volume 90.4 fL (80-100); Mean Platelet Volume 10.1 fL (7.4-10.4); Monocytes # (auto) 0.42 K/uL (0.11-0.59); Monocytes % (auto) 5.8 %; Neutrophils # (auto) 4.85 K/uL (1.4-6.5); Neutrophils % (auto) 67.1 %; Platelet Count 289 K/uL (130-400); RDW Coefficient of Variation 14.2 % (11.5-14.5); RDW Standard Deviation 47.1 fL (36.4-46.3); Red Blood Count 4.49 M/uL (4.2-5.4); White Blood Count 7.24 K/uL (4.8-10.8)
[2022-03-15 06:19] LABS: BUN Creatinine Ratio 12.9 (10-20); Creatinine Clr Calc Pharmacy 53.9 ml/min; Est GFR (African American) 72.4 ml/min; Est GFR (Non-African American) 62.5 ml/min; Potassium 4.1 mmol/L (3.5-5.1)
[2022-03-15 06:22] LABS: Troponin I High Sensitivity 4.1 pg/ml (0-14)
--- NOTE | 2022-03-15 07:51 | XRay Report ---
XR chest 1V portable HISTORY: Atypical chest pain. COMPARISON: Chest 03/31/2021. FINDINGS: No pneumothorax. No pleural effusions. The cardiac silhouette remains mildly enlarged. Ther e is mild diffuse interstitial thickening, unchanged. This is likely chronic. No new focal lung conso lidations to suggest pneumonia. No evidence for pulmonary edema. IMPRESSION: No significant change compared to the prior study. No acute process. ACT 112: Negative or not required by law. Electronically signed by: Oj Bang M.D. 03/15/2022 7:50 AM
[2022-03-15] MEDS: ASPIRIN 81 MG ECTAB PO SCH (08:25)
[2022-03-15] MEDS: LOSARTAN POTASSIUM 50 MG TAB PO SCH (08:25)
[2022-03-15] MEDS: LORATADINE 10 MG TAB PO SCH (08:26)
[2022-03-15] MEDS: LIDOCAINE 5% 1 PATCH TD SCH (08:27)
--- NOTE | 2022-03-15 15:46 | Cardiology Consultation ---
Date of Consultation March 15, 2022 Assessment & Plan (1) Chest pain: (2) HTN (hypertension): (3) Anxiety: Ischemic work-up is unremarkable for her chest discomfort. No wall motion abnormalities on echocardiogram. Given the clinical context of only occurring during episodes of anxiety, I do not see the need for any further cardiac testing at this time. Her blood pressure is significantly elevated but amlodipine was added today. Would continue losartan and can increase both for further blood pressure control as necessary. Okay to DC to home from a cardiac standpoint. History of Present Illness Reason for Consultation: chest pain Requesting Physician: IVAN Attending Physician: Collin Kauffman MD History of Present Illness The patient is a very pleasant yet anxious 86-year-old woman who presented to [facility] emergency department on 03/14/2022 with complaints of chest discomfort. She states that her chest discomfort started after she found out that her caregiver was going on vacation and became she became anxious. Her family who lives in the same household then came to visit her to calm her down and each time a family member left she again had chest pressure. She describes as a tightness around her chest and is unsure if it was associated with shortness of breath. Otherwise, she states that she has been in her normal state of health as of late. Allergies Allergy/AdvReac Type Severity Reaction Status Date / Time chlordiazepoxide Allergy Intermediate RASH Verified 03/15/22 00:27 levofloxacin AdvReac Mild GI UPSET Verified 03/15/22 00:27 Home Medications Medication Instructions Recorded Confirmed Type lidocaine 5 % topical patch 1 patch TOPICAL DAILY #15 ea 03/05/22 03/15/22 Rx (Lidoderm) cholecalciferol (vitamin D3) 1,250 1 unit PO WK 03/15/22 03/15/22 History mcg (50,000 unit) capsule diphenhydramine 25 1 tab PO TID PRN 03/15/22 03/15/22 History mg-acetaminophen 500 mg tablet (Acetaminophen PM) levothyroxine 50 mcg tablet 50 mcg PO QAM 03/15/22 03/15/22 History loratadine 10 mg tablet 10 mg PO DAILY 03/15/22 03/15/22 History losartan 50 mg tablet 50 mg PO DAILY 03/15/22 03/15/22 History Patient History Medical History HTN (hypertension) Hypothyroidism Osteoarthritis Surgical History History of tubal ligation S/P NICOLE (total abdominal hysterectomy) S/P tonsillectomy and adenoidectomy Family History Sister Breast cancer Mother Stroke Social History Smoking Status: Never smoker Second Hand Exposure: No; Do You Dip or Chew Tobacco: No; Tobacco Cessation Education Requested by Patient: No Hx Alcohol Use: No Hx Substance Use: No Preferred Language: Syriac Communication Ability: Effective Batch Mixer Operator Required: No Beliefs That Will Affect Care: Anglican Anglican Beliefs: Congregation. Current Living Situation: Alone Other Information That Helps Us Care for You: No Feels Safe at Home: Yes Safety Concerns: Feels Safe At This Time Assistive Devices: Walker Review of Systems Review of Systems: All systems reviewed & are unremarkable except as noted in HPI & below Physical Exam Physical Exam: General: Awake, alert and oriented x 3. No acute distress. HEENT: Normocephalic, atraumatic. Pupils equal, round and reactive to light and accommodation. Extraocular muscles are intact. Anicteric sclera. Moist mucous membranes. Neck: No JVD. No bruit. Cardiovascular: Regular. Positive S-4. Normal S-1 and S-2. No S-3. 3/6 mid to late systolic ejection murmur, greatest at the right sternal border, second intercostal space with radiation to the bilateral carotids. No rubs. Pulmonary: Clear to auscultation bilaterally. No rales, rhonchi, or wheezing. Abdomen: Bowel sounds x 4, soft. No rebound, guarding or tenderness. No organomegaly. Extremities: No clubbing, cyanosis or edema. +2 pedal pulses bilaterally. Skin: Warm and dry. Results & Data ([facility]) Vital Signs (Past 12 Hours) Vital Signs Temp Pulse Pulse Resp BP Pulse Ox 03/15/22 15:09 36.5 C 76 20 170/89 H 98 03/15/22 11:12 36.5 C 73 18 160/81 H 99 03/15/22 07:44 36.4 C L 93 H 20 180/79 H 97 03/15/22 07:24 99 H (1) Chest pain Chest pain type: unspecified Qualified Code(s): R07.9 - Chest pain, unspecified
[2022-03-15] MEDS ORDERED: hydrOXYzine HCl 10 MG TAB PO STA (16:01)
--- NOTE | 2022-03-15 16:07 | Hospitalist Progress Note ---
Date of Service March 15, 2022 Assessment & Plan (1) Chest pain: Plan: 1. Chest pain from Anxiety, Uncontrolled HTN - troponins x 3 negative EKG no signs of acute ischemia echo: no wall motion abnormalities Gr 1 diastolic dysfunction - executive marketing assistant Dr. Esparza consulted- no further cardiac work up - add Amlodipine 5mg po daily Vistaril 10mg 1 dose and PRN ordered - monitor closely 2. History of hypothyroidism. Continue Synthroid. 3. History of hypertension. Continue losartan. Amlodipine added 4. Chronic kidney disease, stage III. Presently, creatinine was 0.9. 5. Deep venous thrombosis prophylaxis. Sequential compression devices for now. Disposition possible d/c with home health services tomorrow plan of care discussed with patient in detail and at length all questions answered she is understanding, agreeable, comfortable with the plan of care Admission and Anticipated Discharge Date Admission Date: March 15, 2022 Subjective ff up for chest pain, etc seen resting in bedside chair, comfortable states she feels ok overall chest pain has resolved still feels anxious no dyspnea, palpitations, dizziness no other symptoms Review of Systems Review of Systems: all noted and negative except for above Physical Exam Physical Exam: General- oriented x 3, not in distress, speaks in sentences with no effort or accessory muscle use Head- atraumatic Eyes- PERRL, EOMI, anicteric ENT- oropharynx clear Neck- supple, no JVD, no adenopathy, no thyromegaly; carotids +2/2, no bruits appreciated Lungs- clear to auscultation bilaterally, no rales/wheezes Heart- normal rate, regular rhythm; no murmur, no gallop, no rub appreciated Abdomen- normal bowel sounds, nondistended, soft, nontender, no masses or hepatosplenomegaly Extremities- no pretibial edema, no calf tenderness; peripheral pulses intact Neuro- alert, oriented x 3; CN 2-12 grossly intact; motor 5/5 bilaterally;sensat ion 100% on all extremities; no other gross focal neurologic deficits Skin- warm & dry Results & Data Results & Data ([facility]) Vital Signs (Past 12 Hours) Vital Signs Temp Pulse Pulse Resp BP Pulse Ox 03/15/22 16:03 71 03/15/22 15:09 36.5 C 76 20 170/89 H 98 03/15/22 11:12 36.5 C 73 18 160/81 H 99 03/15/22 07:44 36.4 C L 93 H 20 180/79 H 97 03/15/22 07:24 99 H all noted and reviewed including below (1) Chest pain Chest pain type: unspecified Qualified Code(s): R07.9 - Chest pain, unspecified
[2022-03-15] MEDS ORDERED: amLODIPine BESYLATE 5 MG TAB PO ONE (16:15)
[2022-03-16] MEDS ORDERED: diphenhydrAMINE Capsule 25 MG CAP PO ONE (02:18)
--- NOTE | 2022-03-16 06:11 | Electrocardiogram Report ---
Test Reason : Blood Pressure : / mmHG Vent. Rate : 082 BPM Atrial Rate : 082 BPM P-R Int : 144 ms QRS Dur : 072 ms QT Int : 364 ms P-R-T Axes : 010 -04 014 degrees QTc Int : 425 ms Normal sinus rhythm Normal ECG When compared with ECG of 01-APR-2021 05:44, No significant change was found Confirmed by Isidro Monroy ([id number]) on 03/16/2022 6:11:01 AM Referred By: REFERRED SELF Confirmed By:Isidro Monroy
[2022-03-16] MEDS: LEVOTHYROXINE SODIUM 50 MCG TABLET PO SCH (06:22)
--- NOTE | 2022-03-16 06:41 | Electrocardiogram Report ---
Test Reason : Blood Pressure : / mmHG Vent. Rate : 066 BPM Atrial Rate : 066 BPM P-R Int : 164 ms QRS Dur : 076 ms QT Int : 382 ms P-R-T Axes : 065 040 030 degrees QTc Int : 400 ms Sinus rhythm with marked sinus arrhythmia Low voltage QRS Borderline ECG When compared with ECG of 14-MAR-2022 21:19, No significant change was found Confirmed by Isidro Monroy ([id number]) on 03/16/2022 6:41:16 AM Referred By: REFERRED SELF Confirmed By:Isidro Monroy
[2022-03-16] MEDS: LOSARTAN POTASSIUM 50 MG TAB PO SCH (08:43)
[2022-03-16] MEDS: LORATADINE 10 MG TAB PO SCH (08:43)
[2022-03-16] MEDS: LIDOCAINE 5% 1 PATCH TD SCH (08:43)
[2022-03-16] MEDS: ASPIRIN 81 MG ECTAB PO SCH (08:43)
[2022-03-16] MEDS: cefTRIAXone SODIUM 2,000 MG in DEXTROSE 5% 50 ML IV SCH (08:51)
[2022-03-16] MEDS ORDERED: hydrOXYzine HCl 10 MG TAB PO PRN (09:00)
[2022-03-16] MEDS ORDERED: ERGOCALCIFEROL 50,000 UNITS 1250 MCG CAP PO SCH (09:00)
[2022-03-16] MEDS ORDERED: amLODIPine BESYLATE 5 MG TAB PO SCH (09:00)
[2022-03-16] MEDS ORDERED: LOSARTAN POTASSIUM 25 MG TAB PO STA (11:28)
--- NOTE | 2022-03-16 11:31 | Hospitalist Progress Note ---
Date of Service March 16, 2022 Assessment & Plan (1) Chest pain: Plan: 1. Chest pain from Anxiety, Uncontrolled HTN - troponins x 3 negative EKG no signs of acute ischemia echo: no wall motion abnormalities Gr 1 diastolic dysfunction - acquisition consultant Dr. Esparza consulted- no further cardiac work up - add Amlodipine 5mg po daily increase Losartan from 50 to 75mg daily Vistaril 10mg BID PRN for anxiety - ff up with PCP next week home health RN arranged 2. History of hypothyroidism. Continue Synthroid. 3. History of hypertension. as per #1 4. Chronic kidney disease, stage III. Presently, creatinine was 0.9. 5. Deep venous thrombosis prophylaxis. Sequential compression devices for now. Disposition d/c with home health services PCP ff up in 1 week plan of care discussed with patient in detail and at length all questions answered she is understanding, agreeable, comfortable with the plan of care Admission and Anticipated Discharge Date Admission Date: March 15, 2022 Subjective ff up for chest pain, HTN, etc seen resting in chair, playing solitaire, comfortable in good spirits states she feels better overall chest pain free since yesterday ambulated in the hallways with no problems no chest pain, dyspnea, palpitations, dizziness no other symptoms no anxiety this morning Vistaril helped yesterday Review of Systems Review of Systems: all noted and negative except for above Physical Exam Physical Exam: General- oriented x 3, not in distress, speaks in sentences with no effort or accessory muscle use Eyes- anicteric Neck- no JVD Lungs- clear breath sounds bilaterally, no rales/wheezes Heart- normal rate, regular rhythm; no murmurs Abdomen- normal bowel sounds, nondistended, soft, nontender Extremities- no pretibial edema, no calf tenderness Neuro- alert, oriented x 3; no gross focal neurologic deficits Skin- warm & dry Results & Data Results & Data ([facility]) Vital Signs (Past 12 Hours) Vital Signs Temp Pulse Pulse Resp BP Pulse Ox 03/16/22 11:21 36.5 C 101 H 18 160/89 H 97 03/16/22 08:00 82 03/16/22 07:46 36.8 C 97 H 18 167/78 H 95 03/16/22 03:20 36.9 C 91 H 20 143/72 H 95 all noted and reviewed including below (1) Chest pain Chest pain type: unspecified Qualified Code(s): R07.9 - Chest pain, unspecified
--- NOTE | 2022-03-16 13:14 | Discharge Summary ---
Date of Service March 16, 2022 Admission HPI Per Admitting Provider HISTORY OF PRESENT ILLNESS: This 86-year-old female with past medical history significant for hypothyroidism, chronic kidney disease stage III, obesity, senile osteoporosis, spinal stenosis of lumbar region, who lives alone, was presented with chest pain. The patient says she lives downstairs and her son and family live upstairs. Her brother and his are caregiver. They come 3 times a week and help her and her caregivers are going for vacation, which caused some stress and some panic to her though her family is good to her. Her son and also her sister who lives in [place] help her, but for some reason she felt stressed and panicked and that brought her chest pain in the lower chest region, which prompted her to come to the ER. Currently, she does not have any pain, but whenever she feels anxious or stressed, the pain comes back. Denies any shortness of breath, no cough, no fever, no chills, no headache, no blurred vision, no earache, no runny nose, no sore throat. Appetite is good. No difficulty swallowing. No nausea, no abdominal pain. Normal bowel and bladder movements. Ambulates with a walker. Currently, resting comfortably and hemodynamically stable. Admission Exam Per Admitting Provider GENERAL: The patient is alert and awake, not in acute distress. The patient is morbidly obese. VITAL SIGNS: Temperature 36.6, pulse 85, respiratory rate 29, blood pressure 148/86, oxygen 98% on room air. HEENT: Pupils equal, round and reactive to light. Oral mucosa moist. NECK: No JVD, no neck masses. CARDIOVASCULAR: S1 and S2 heard. Regular rate and rhythm. No murmur, no gallop. RESPIRATORY SYSTEM: Normal AP diameter. No accessory muscle use. No wheezing, no crackles. ABDOMEN: Soft, bowel sounds present, nontender, no distention. CENTRAL NERVOUS SYSTEM: Cranial nerves II-XII grossly intact, nonfocal. EXTREMITIES: No edema, no erythema. Principal Diagnosis CHEST PAIN, ACUTE CORONARY SYNDROME RULED OUT HYPERTENSION ANXIETY Discharge Exam General- oriented x 3, not in distress, speaks in sentences with no effort or accessory muscle use Eyes- anicteric Neck- no JVD Lungs- clear breath sounds bilaterally, no rales/wheezes Heart- normal rate, regular rhythm; no murmurs Abdomen- normal bowel sounds, nondistended, soft, nontender Extremities- no pretibial edema, no calf tenderness Neuro- alert, oriented x 3; no gross focal neurologic deficits Skin- warm & dry Discharge Data Allergies Allergy/AdvReac Type Severity Reaction Status Date / Time chlordiazepoxide Allergy Intermediate RASH Verified 03/15/22 00:27 levofloxacin AdvReac Mild GI UPSET Verified 03/15/22 00:27 Consultations 03/14/22 23:56 ED Decision to Admit Stat 03/15/22 08:00 Consult Cardiology Routine Hospital Course (1) Chest pain: 1. Chest pain from Anxiety, Uncontrolled HTN - troponins x 3 negative EKG no signs of acute ischemia echo: no wall motion abnormalities Gr 1 diastolic dysfunction - clinical applications specialist Dr. Esparza consulted- no further cardiac work up - add Amlodipine 5mg po daily increase Losartan from 50 to 75mg daily Vistaril 10mg BID PRN for anxiety - ff up with PCP next week home health RN arranged 2. History of hypothyroidism. Continue Synthroid. 3. History of hypertension. as per #1 4. Chronic kidney disease, stage III. Presently, creatinine was 0.9. 5. Deep venous thrombosis prophylaxis. Sequential compression devices for now. Disposition d/c with home health services PCP ff up in 1 week plan of care discussed with patient in detail and at length all questions answered she is understanding, agreeable, comfortable with the plan of care Total Time Total Time Spent Total Time Spent (In Minutes): >30 MINUTES Discharge Plan Discharge Items Patient Disposition: Home - Self-Care Reason For Visit: CHEST PAIN Discharge Diagnosis: CHEST PAIN HYPERTENSION ANXIETY Activity: Resume your previous activity Activity Comment: GRADUALLY TOLERATED, NO HEAVY LIFTING Lifting: Wait until after follow-up appointment Exercise/Sports: Wait until after follow-up appointment Non-emergency contact: Primary Care Provider Call non-emergency contact if: you have any medication questions, your symptoms worsen, your pain is not controlled, your pain is worsening, your pain is unusual for you, your pain is concerning for you and you have a fever Follow-up/Referrals: Shonda Burger DO [Primary Care Provider] - (Date & Time 03/19/2022 11:00 AM Provider Leslie Cabezas DO Department [facility] ) Diet: Heart Healthy Addtl Attending Provider Instructions: PLEASE REFER TO YOUR NEW MEDICATION LIST AND FOLLOW INSTRUCTIONS CAREFULLY. YOUR NEW MEDICATIONS INCLUDE: AMLODIPINE - FOR BLOOD PRESSURE CONTROL INCREASE YOUR LOSARTAN FROM 50 TO 75MG DAILY. HYDRALAZINE- NEEDED FOR ANXIETY, UP TO TWICE A DAY PLEASE CALL YOUR PRIMARY CARE PHYSICIAN OR RETURN TO THE ER IF WITH WORSENING OF SYMPTOMS, INCLUDING CHEST PAIN, SHORTNESS OF BREATH, LEG SWELLING, UNCONTROLLED ANXIETY. FOLLOW UP WITH PRIMARY CARE PHYSICIAN OUTLINED ABOVE. Pending Studies at Discharge: No Stand-Alone Forms: My [facility] CX, Smoking Cessation Medications and DC Order Prescriptions: New amlodipine [Norvasc] 5 mg Tablet 5 mg PO QAM Qty: 30 RF: 1 hydroxyzine HCl 10 mg Tablet 10 mg PO BID PRN (Reason: anxiety) Qty: 12 RF: 0 Continued lidocaine [Lidoderm] 5 % adhesive patch,medicated 1 patch topical DAILY Qty: 15 RF: 0 cholecalciferol (vitamin D3) 1,250 mcg (50,000 unit) capsule 1 unit PO WK RF: 0 levothyroxine 50 mcg tablet 50 mcg PO QAM RF: 0 loratadine 10 mg Tablet 10 mg PO DAILY RF: 0 diphenhydramine-acetaminophen [Acetaminophen PM] 25-500 mg Tablet 1 tab PO TID PRN (Reason: Pain) RF: 0 Changed losartan 50 mg tablet 75 mg PO DAILY 30 Days Qty: 45 RF: 1 Discharge Orders: Discharge Order (Routine); Ordered 03/16/22 Ordered By: Alexx Moses/Other Patient Handouts: Controlling High Blood Pressure Admission Data Admit Date/Time: 03/15/22 16:07 Attending Provider: Alexx Huber Admit Provider: Ashkan Garrison Primary Care Provider: Shonda Burger Other Providers: Ashkan Garrison ; Mario Esparza ; Michael Smith ; Terrell Laguna ; Ruddy Burger ; Tavo Avila ; Jordan Guzman ; Vicky Winters ; Xiomara French ; Ankita Andrade ; Augie Pozo ; Alexx Huber Other Interventions: Discharge Summary Assessment (RN) Last Done: 03/16/22 11:49
--- NOTE | 2022-03-17 06:34 | Electrocardiogram Report ---
Test Reason : Blood Pressure : / mmHG Vent. Rate : 076 BPM Atrial Rate : 076 BPM P-R Int : 162 ms QRS Dur : 072 ms QT Int : 376 ms P-R-T Axes : 070 055 033 degrees QTc Int : 423 ms Normal sinus rhythm Normal ECG When compared with ECG of 15-MAR-2022 08:46, No significant change was found Confirmed by Isidro Monroy ([id number]) on 03/17/2022 6:34:15 AM Referred By: REFERRED SELF Confirmed By:Isidro Monroy
== END 2022-03-16 13:09 | disposition home or self-care (01) | DRG 880 ==
LOC: ED 21:03 → 2N 21:03 → SUATTDRO 03-15 02:03 → 2N 03-15 02:24